=== PATIENT | female | born 1940 | race Caucasian/White ===

== ENCOUNTER 2018-06-28 15:13 | Emergency (ER) | payer MEDICARE ==
--- NOTE | 2018-06-28 15:57 | ERPHSYRPT ---
- History of Present Illness Time Seen by Provider: 06/28/18 15:51 Source: patient Exam Limitations: no limitations Patient Subjective Stated Complaint: SEEN WEDNESDAY FOR COPD AND PUT ON KEFLEX AND IS NOT GETTING ANY BETTER. MORE SOB TODAY Triage Nursing Assessment: AMBULATED TO ROOM PER SELF. SKIN W/D, COLOR NORMAL, RESP LABORED AND SHALLOW. COARSE BREATH SOUNDS THROUGHOUT. Physician History: The patient is a 78-year-old female complaining of worsening cough and shortness of breath since Wednesday (3 days ago). She went to [facility] in [place] on Wednesday and was given Keflex and a steroid shot. She has not gotten any better. She denies fever or chills she denies chest pain. She was worse this morning but since then, has been feeling better. Her past medical history is significant for COPD, HTN, anxiety. Timing/Duration: day(s) (3) Activities at Onset: none Severity of Dyspnea-Max: moderate Severity of Dyspnea-Current: moderate Possible Cause: occasional episodes Modifying Factors: Improves With: activity, albuterol nebulizer, coughing Associated Symptoms: cough, No chills Allergies/Adverse Reactions: Sulfa (Sulfonamide Antibiotics) Allergy (Severe, Verified 06/28/18 15:21) TONGUE ROSARIO azithromycin [From Zithromax Z-Deuce] Allergy (Verified 06/28/18 15:21) phenobarbital Adverse Reaction (Severe, Verified 06/28/18 15:21) Rash Home Medications: Aspirin [Ecotrin] 81 mg PO DAILY 08/21/14 [History] Calcium Carbonate/Vitamin D3 [Calcium 500-Vit D3 400 Tablet] 1 each PO DAILY [History] Multivitamin [Multivitamins] 1 each PO DAILY 08/21/14 [History] Telmisartan [Micardis] 40 mg PO DAILY 08/21/14 [History] Tiotropium [place] [Spiriva] 18 mcg IH DAILY 11/25/14 [History] Budesonide 0.5 mg/2 ml [Pulmicort 0.5 mg/2 ml Respules] 0.5 mg IH BID 01/22 [History] Hx Tetanus, Diphtheria Vaccination/Date Given: No Hx Influenza Vaccination/Date Given: Yes Hx Pneumococcal Vaccination/Date Given: Yes Immunizations Up to Date: No - Review of Systems Constitutional: No Fever, No Chills Eyes: No Symptoms Ears, Nose, & Throat: No Symptoms Respiratory: Cough, Dyspnea Cardiac: No Chest Pain, No Edema, No Syncope Abdominal/Gastrointestinal: No Abdominal Pain, No Nausea, No Vomiting, No Diarrhea Genitourinary Symptoms: No Dysuria Musculoskeletal: No Back Pain, No Neck Pain Skin: No Rash Neurological: No Dizziness, No Focal Weakness, No Sensory Changes Psychological: No Symptoms Endocrine: No Symptoms Hematologic/Lymphatic: No Symptoms Immunological/Allergic: No Symptoms All Other Systems: Reviewed and Negative - Past Medical History Pertinent Past Medical History: Yes Neurological History: No Pertinent History ENT History: No Pertinent History Cardiac History: Hypertension Respiratory History: COPD Endocrine Medical History: No Pertinent History Musculoskeletal History: No Pertinent History GI Medical History: No Pertinent History History: No Pertinent History Psycho-Social History: Anxiety Female Reproductive Disorders: No Pertinent History - Past Surgical History Past Surgical History: Yes (rectal fistula) Neuro Surgical History: No Pertinent History Cardiac: No Pertinent History Respiratory: No Pertinent History Gastrointestinal: No Pertinent History Genitourinary: No Pertinent History Musculoskeletal: No Pertinent History Female Surgical History: No Pertinent History, Tubal Ligation Other Surgical History: RECTAL CYST - Social History Smoking Status: Never smoker How long have you smoked: 30 Exposure to second hand smoke: Yes Drug Use: none Patient Lives Alone: Yes - Female History Hx Now: No - Nursing Vital Signs Nursing Vital Signs: Initial Vital Signs Temperature 98 F 06/28/18 15:18 Pulse Rate 112 H 06/28/18 15:18 Respiratory Rate 26 H 06/28/18 15:18 Blood Pressure 153/94 06/28/18 15:18 O2 Sat by Pulse Oximetry 94 L 06/28/18 15:18 Pain Scale Pain Intensity 0 - Physical Exam General Appearance: no apparent distress, alert Eye Exam: PERRL/EOMI Ears, Nose, Throat Exam: hearing grossly normal Neck Exam: normal inspection, supple Respiratory Exam: diminished breath sounds, rhonchi, wheezing Cardiovascular/Chest Exam: normal heart sounds, regular rate/rhythm Abdominal/Gastrointestinal Exam: soft, No tenderness, No distention, No mass Rectal Exam: not done Extremity Exam: non-tender, normal range of motion, normal inspection, no calf tenderness, no pedal edema Neurologic Exam: alert, oriented x 3, cooperative, nurse liaison II-XII nml as tested, sensation nml, No motor deficits Skin Exam: normal color, warm, No dry SpO2 Interpretation: borderline oxygenation SpO2: 94 O2 Delivery: Nasal Cannula (2L) - Radiology Exams Chest X-ray Interpretation: Reviewed by me, Teleradiologist Report (per Dr Estes), Negative Ordered Tests: Active Orders 24 hr Category Date Time Status Play Therapist STAT Care 06/28/18 16:02 Active IV Insertion STAT Care 06/28/18 15:59 Active Oxygen-ED Only Nasal Cannula 2 lpm Care 06/28/18 15:59 Active CHEST 2 VIEWS (PA AND LAT) Stat Exams 06/28/18 16:01 Completed CBC W DIFF Stat Lab 06/28/18 16:16 Completed CMP Stat Lab 06/28/18 16:16 Completed Lactic Acid Stat Lab 06/28/18 16:10 Completed NT PRO BNP Stat Lab 06/28/18 16:16 Completed TROPONIN Q3H Lab 06/28/18 16:16 Completed TROPONIN Q3H Lab 06/28/18 19:15 Ordered TROPONIN Q3H Lab 06/28/18 22:15 Ordered TROPONIN Q3H Lab 06/29/18 01:15 Ordered TROPONIN Q3H Lab 06/29/18 04:15 Ordered Peak Expiratory Flow Rate ONCE RT 06/28/18 16:27 Active Respiratory Nebulizer STAT RT 06/28/18 16:02 Completed Respiratory Therapy Assessment DAILY RT 06/28/18 16:27 Active Medication Summary Generic Name Dose Route Start Last Admin Trade Name Freq PRN Reason Stop Dose Admin Ceftriaxone Sodium/Dextrose 1 g in 50 mls @ 100 mls/hr 06/28/18 17:07 Rocephin 1 Gm-D5w 50 Ml Bag IV 06/28/18 17:36 STAT STA Discontinued Medications Generic Name Dose Route Start Last Admin Trade Name Freq PRN Reason Stop Dose Admin Albuterol/Ipratropium 3 ml 06/28/18 15:59 06/28/18 16:22 Duoneb 0.5-3 Mg/3 Ml Neb IH 06/28/18 16:00 3 ml STAT ONE Administration Albuterol/Ipratropium Confirm 06/28/18 16:10 Duoneb 0.5-3 Mg/3 Ml Neb Administered 06/28/18 16:11 Dose 3 ml IH .STK-MED ONE Methylprednisolone Sodium Succinate 125 mg 06/28/18 15:59 06/28/18 16:54 Solu-Medrol 125 Mg IV 06/28/18 16:00 125 mg STAT ONE Administration Methylprednisolone Sodium Succinate Confirm 06/28/18 16:48 Solu-Medrol 125 Mg Administered 06/28/18 16:49 Dose 125 mg .ROUTE .STK-MED ONE Lab/Rad Data: Laboratory Result Diagrams 06/28/18 16:16 06/28/18 16:16 Laboratory Results 06/28/18 06/28/18 06/28/18 Range/Units 16:16 16:16 16:16 WBC (4.0-10.5) K/mm3 RBC (4.1-5.4) M/mm3 Hgb (12.0-16.0) gm/dl Hct (35-47) % MCV (78-100) fl MCH (26-32) pg MCHC (32-36) g/dl RDW (11.5-14.0) % Plt Count (150-450) K/mm3 MPV (6-9.5) fl Gran % (36.0-66.0) % Eos # (Auto) (0-0.5) Absolute Lymphs (auto) (1.0-4.6) Absolute Monos (auto) (0.0-1.3) Lymphocytes % (24.0-44.0) % Monocytes % (0.0-12.0) % Eosinophils % (0.00-5.0) % Basophils % (0.0-0.4) % Absolute Granulocytes (1.4-6.9) Basophils # (0-0.4) Sodium 138 (137-145) mmol/L Potassium 4.1 (3.5-5.1) mmol/L Chloride 104 (98-107) mmol/L Carbon Dioxide 27 (22-30) mmol/L Anion Gap 11.1 (5-15) MEQ/L BUN 23 H (7-17) mg/dL Creatinine 0.94 (0.52-1.04) mg/dL Estimated GFR > 60.0 ML/MIN Glucose 85 (74-106) mg/dL Lactic Acid (0.4-2.0) Calcium 9.8 (8.4-10.2) mg/dL Total Bilirubin 0.50 (0.2-1.3) mg/dL AST 22 (14-36) U/L ALT 20 (0-35) U/L Alkaline Phosphatase 64 (38-126) U/L Troponin I < 0.012 (0.000-0.034) ng/mL NT-Pro-B Natriuret Pep 353 (0-1800) pg/mL Serum Total Protein 7.7 (6.3-8.2) g/dL Albumin 4.3 (3.5-5.0) g/dL Influenza Type A Ag NEGATIVE (NEGATIVE) Influenza Type B Ag NEGATIVE (NEGATIVE) 06/28/18 06/28/18 Range/Units 16:16 16:10 WBC 9.8 (4.0-10.5) K/mm3 RBC 4.36 (4.1-5.4) M/mm3 Hgb 13.9 (12.0-16.0) gm/dl Hct 42.3 (35-47) % MCV 97.0 (78-100) fl MCH 31.9 (26-32) pg MCHC 32.9 (32-36) g/dl RDW 13.3 (11.5-14.0) % Plt Count 320 (150-450) K/mm3 MPV 10.0 H (6-9.5) fl Gran % 63.4 (36.0-66.0) % Eos # (Auto) 0.23 (0-0.5) Absolute Lymphs (auto) 2.76 (1.0-4.6) Absolute Monos (auto) 0.59 (0.0-1.3) Lymphocytes % 28.1 (24.0-44.0) % Monocytes % 6.0 (0.0-12.0) % Eosinophils % 2.3 (0.00-5.0) % Basophils % 0.2 (0.0-0.4) % Absolute Granulocytes 6.22 (1.4-6.9) Basophils # 0.02 (0-0.4) Sodium (137-145) mmol/L Potassium (3.5-5.1) mmol/L Chloride (98-107) mmol/L Carbon Dioxide (22-30) mmol/L Anion Gap (5-15) MEQ/L BUN (7-17) mg/dL Creatinine (0.52-1.04) mg/dL Estimated GFR ML/MIN Glucose (74-106) mg/dL Lactic Acid 1.2 (0.4-2.0) Calcium (8.4-10.2) mg/dL Total Bilirubin (0.2-1.3) mg/dL AST (14-36) U/L ALT (0-35) U/L Alkaline Phosphatase (38-126) U/L Troponin I (0.000-0.034) ng/mL NT-Pro-B Natriuret Pep (0-1800) pg/mL Serum Total Protein (6.3-8.2) g/dL Albumin (3.5-5.0) g/dL Influenza Type A Ag (NEGATIVE) Influenza Type B Ag (NEGATIVE) - Progress Progress: improved Blood Culture(s) Obtained: No Antibiotics given: Yes Counseled pt/family regarding: rad results - Departure Time of Disposition: 17:13 Departure Disposition: Home Clinical Impression: Bronchitis Condition: Stable Critical Care Time: No Referrals: CELIA SHARP MD [Primary Care Provider] - Additional Instructions: You have bronchitis. The chest x-ray did not show any pneumonia. Your laboratory test shows you do not have influenza. You were given a DuoNeb breathing treatment, Solu-Medrol 125 mg by IV, and Rocephin 1 g by IV in the ER. Take doxycycline 100 mg 2 times a day for 7 days. Take prednisone 60 mg daily for 5 days. Finally stopped taking the Keflex. Follow-up with your primary medical doctor in 2-3 days. Prescriptions: Doxycycline Hyclate 100 mg [Vibramycin 100 MG] 100 mg PO BID #14 tab Prednisone 60 mg PO DAILY #15 tablet
[2018-06-28] MEDS ORDERED: DUONEB 0.5-3 MG/3 ml Neb IH ONE ×2 (15:59→16:10)
[2018-06-28] MEDS ORDERED: solu-MEDROL 125 MG IV ONE (15:59)
[2018-06-28 16:22] LABS: BASOPHIL % 0.2 % (0.0-0.4); Basophil (Absolute #) 0.02 (0-0.4); Eosinophil % 2.3 % (0.00-5.0); Eosinophil (Absolute #) 0.23 (0-0.5); Granulocyte Absolute (ANC) 6.22 (1.4-6.9); Granulocytes % 63.4 % (36.0-66.0); Hematocrit 42.3 % (35-47); Hemoglobin 13.9 gm/dl (12.0-16.0); Lymphocyte (Absolute #) 2.76 (1.0-4.6); Lymphocytes % 28.1 % (24.0-44.0); Mean Corpuscular Hemoglobin 31.9 pg (26-32); Mean Corpuscular Hgb Concent. 32.9 g/dl (32-36); Monocyte (Absolute #) 0.59 (0.0-1.3); Platelet Count 320 K/mm3 (150-450); Red Blood Count 4.36 M/mm3 (4.1-5.4); Red Cell Distribution Width 13.3 % (11.5-14.0); White Blood Count 9.8 K/mm3 (4.0-10.5)
--- NOTE | 2018-06-28 16:22 | XRAY ---
Indication: Cough and short of breath 4 days. History COPD. Comparison: March 25, 2016. PA/lateral chest remains hyperinflated and clear. Heart and mediastinal structures within normal limits. Bony thorax intact again with mild osteopenia, degenerative changes, and scoliosis. Impression: Stable nonacute hyperinflated chest with chronic features.
[2018-06-28 16:40] LABS: ALBUMIN 4.3 g/dL (3.5-5.0); ALKALINE PHOSPHATASE 64 U/L (38-126); ANION GAP 11.1 MEQ/L (5-15); BLOOD UREA NITROGEN 23 mg/dL (7-17); CHLORIDE 104 mmol/L (98-107); Calcium 9.8 mg/dL (8.4-10.2); Carbon Dioxide 27 mmol/L (22-30); Creatinine 1 0.94 mg/dL (0.52-1.04); Glucose 85 mg/dL (74-106); NT PRO BNP 353 pg/mL (0-1800); Potassium 4.1 mmol/L (3.5-5.1); SGOT/AST 22 U/L (14-36); SGPT/ALT 20 U/L (0-35); SODIUM 138 mmol/L (137-145); Total Protein 7.7 g/dL (6.3-8.2)
[2018-06-28] MEDS ORDERED: solu-MEDROL 125 MG ONE (16:48)
[2018-06-28 16:58] LABS: INFLUENZA A NEGATIVE (NEGATIVE); INFLUENZA B NEGATIVE (NEGATIVE)
[2018-06-28] MEDS ORDERED: ROCEPHIN 1 Gm-D5w 50 ml Bag** 1 G/50 ML IVPB IV STA (17:07)
[2018-06-28] MEDS ORDERED: ROCEPHIN 1 Gm-D5w 50 ml Bag** 1 G/50 ML IVPB IV ONE (17:16)
[2018-06-28 17:43] LABS: RESPIRATORY SYNCTIAL VIRUS NEGATIVE (Negative)
[2018-06-28 18:19] VITALS: BP 124/62; PULSE 103; O2SAT 94
== END 2018-06-28 18:05 | disposition home or self-care (01) ==
LOC: ED 15:13
DX: J40 Bronchitis, not specified as acute or chronic (principal); I10 Essential (primary) hypertension; J44.9 Chronic obstructive pulmonary disease, unspecified; Z79.899 Other long term (current) drug therapy; F41.9 Anxiety disorder, unspecified
CPT/HCPCS: 36000; 36415; 71046; 80053; 83605; 83880; 84484; 85025; 87631; 93041; 94150; 94640; 96365; 96374; 96375; 99284; J0696; J2930; A9270-GY

== ENCOUNTER 2019-05-09 11:06 | Emergency (ER) | payer MEDICARE ==
--- NOTE | 2019-05-09 11:22 | ERPHSYRPT ---
- History of Present Illness Time Seen by Provider: 05/09/19 11:11 Source: patient, family Exam Limitations: no limitations Physician History: cough and shortness of breath or last or 4 days. patient was seen at urgent care. Was prescribed Keflex and the steroid. The patient says she lives by herself and probably got anxious because she was unable to breathe. She actually feels better now. No shortness of breath or respiratory distress. No history of heart problem. Timing/Duration: day(s) (4) Activities at Onset: emotional stress Severity of Dyspnea-Max: moderate Severity of Dyspnea-Current: mild Possible Cause: occasional episodes Modifying Factors: Improves With: albuterol inhaler, rest Associated Symptoms: intermittent, anxiety, cough, No chest pain/discomfort, No edema, No fever, No insomnia, No loss of appetite, No lightheadedness, No wheezing, No weakness, No ankle swelling, No chills, No hemoptysis, No calf pain , No dizziness, No heaviness, No heart racing, No lightheadedness, No leg swelling, No muscle spasms feet, No muscle spasms hands Allergies/Adverse Reactions: Sulfa (Sulfonamide Antibiotics) Allergy (Severe, Verified 05/09/19 11:52) TONGUE ROSARIO azithromycin [From Zithromax Z-Deuce] Allergy (Verified 05/09/19 11:52) phenobarbital Adverse Reaction (Severe, Verified 05/09/19 11:52) Rash Home Medications: Aspirin [Ecotrin] 81 mg PO DAILY 08/21/14 [History] Calcium Carbonate/Vitamin D3 [Calcium 500-Vit D3 400 Tablet] 1 each PO DAILY [History] Multivitamin [Multivitamins] 1 each PO DAILY 08/21/14 [History] Telmisartan [Micardis] 40 mg PO DAILY 08/21/14 [History] Tiotropium [place] [Spiriva] 18 mcg IH DAILY 11/25/14 [History] Budesonide 0.5 mg/2 ml [Pulmicort 0.5 mg/2 ml Respules] 0.5 mg IH BID 01/22 [History] Hx Tetanus, Diphtheria Vaccination/Date Given: No Hx Influenza Vaccination/Date Given: Yes Hx Pneumococcal Vaccination/Date Given: Yes - Review of Systems Constitutional: Chills Eyes: No Symptoms Ears, Nose, & Throat: No Symptoms Respiratory: Cough, Dyspnea, Wheezing, No Dyspnea on Exertion ([place]) Cardiac: No Chest Pain, No Edema, No Syncope Abdominal/Gastrointestinal: No Abdominal Pain, No Nausea, No Vomiting, No Diarrhea Genitourinary Symptoms: No Dysuria Musculoskeletal: No Back Pain, No Neck Pain Skin: No Rash Neurological: No Dizziness, No Focal Weakness, No Sensory Changes Psychological: No Symptoms, Anxiety Endocrine: No Symptoms All Other Systems: Reviewed and Negative - Past Medical History Pertinent Past Medical History: Yes Neurological History: No Pertinent History ENT History: No Pertinent History Cardiac History: Hypertension Respiratory History: COPD Endocrine Medical History: No Pertinent History Musculoskeletal History: No Pertinent History GI Medical History: No Pertinent History History: No Pertinent History Psycho-Social History: Anxiety Female Reproductive Disorders: No Pertinent History - Past Surgical History Past Surgical History: Yes (rectal fistula) Neuro Surgical History: No Pertinent History Cardiac: No Pertinent History Respiratory: No Pertinent History Gastrointestinal: No Pertinent History Genitourinary: No Pertinent History Musculoskeletal: No Pertinent History Female Surgical History: No Pertinent History, Tubal Ligation Other Surgical History: RECTAL CYST - Social History Smoking Status: Never smoker How long have you smoked: 30 Exposure to second hand smoke: Yes Drug Use: none Patient Lives Alone: Yes - Nursing Vital Signs Nursing Vital Signs: Initial Vital Signs Temperature 98.2 F 05/09/19 11:15 Pulse Rate 116 H 05/09/19 11:15 Respiratory Rate 18 05/09/19 11:15 Blood Pressure 176/101 05/09/19 11:15 O2 Sat by Pulse Oximetry 93 L 05/09/19 11:15 Pain Scale Pain Intensity 0 - Physical Exam General Appearance: no apparent distress, alert Eye Exam: PERRL/EOMI Neck Exam: normal inspection, supple Respiratory Exam: normal breath sounds, lungs clear, airway intact, No chest tenderness, No respiratory distress, No diminished breath sounds, No accessory muscle use, No prolonged expirations, No crackles/rales, No rhonchi, No wheezing , No stridor Cardiovascular/Chest Exam: normal heart sounds, regular rate/rhythm Abdominal/Gastrointestinal Exam: soft, No tenderness, No distention, No mass Extremity Exam: non-tender, normal range of motion, normal inspection, no calf tenderness, no pedal edema Neurologic Exam: alert, oriented x 3, cooperative, learning and development associate II-XII nml as tested, sensation nml, other (Anxious), No motor deficits Skin Exam: normal color, warm, No dry SpO2 Interpretation: normal - Course Nursing assessment & vital signs reviewed: Yes EKG Interpreted by Me: RATE ([id number]), Sinus Tach - Radiology Exams Chest X-ray Interpretation: Discussed w/ radiologist, Negative Ordered Tests: Active Orders 24 hr Category Date Time Status Programming Equipment Operator STAT Care 05/09/19 11:12 Active EKG-ER Only STAT Care 05/09/19 11:12 Active IV Insertion STAT Care 05/09/19 11:12 Active Pulse Oximetry (ED) STAT Care 05/09/19 11:12 Active CHEST 1 VIEW (PORTABLE) Stat Exams 05/09/19 11:12 Completed BLOOD CULTURE Stat Lab 05/09/19 12:20 Received CBC W DIFF Stat Lab 05/09/19 12:20 Completed CK-Creatinine Phosphokinase Stat Lab 05/09/19 12:20 Completed CMP Stat Lab 05/09/19 12:20 Completed Lactic Acid Stat Lab 05/09/19 11:44 Completed NT PRO BNP Stat Lab 05/09/19 12:20 Completed TROPONIN Q3H Lab 05/09/19 12:00 Completed TROPONIN Q3H Lab 05/09/19 14:15 Ordered TROPONIN Q3H Lab 05/09/19 17:15 Ordered Respiratory Therapy Assessment ONCE RT 05/09/19 12:07 Active Medication Summary Generic Name Dose Route Start Last Admin Trade Name Freq PRN Reason Stop Dose Admin Furosemide 20 mg 05/10/19 11:30 05/09/19 12:32 Lasix 20 Mg/2 Ml IV 05/10/19 11:31 20 mg STAT ONE Administration Discontinued Medications Generic Name Dose Route Start Last Admin Trade Name Freq PRN Reason Stop Dose Admin Albuterol/Ipratropium 3 ml 05/09/19 11:28 05/09/19 12:03 Duoneb 0.5-3 Mg/3 Ml Neb IH 05/09/19 11:29 3 ml STAT ONE Administration Albuterol/Ipratropium Confirm 05/09/19 12:01 Duoneb 0.5-3 Mg/3 Ml Neb Administered 05/09/19 12:02 Dose 3 ml IH .STK-MED ONE Furosemide Confirm 05/09/19 12:17 Lasix 40 Mg/4 Ml Administered 05/09/19 12:18 Dose 40 mg .ROUTE .STK-MED ONE Ceftriaxone Sodium/Dextrose 1 g in 50 mls @ 100 mls/hr 05/09/19 11:28 13:08 Rocephin 1 Gm-D5w 50 Ml Bag IV 05/09/19 11:57 Infused STAT STA Infusion Ceftriaxone Sodium/Dextrose Confirm 05/09/19 12:17 Rocephin 1 Gm-D5w 50 Ml Bag Administered 05/09/19 12:18 Dose 1 g in 50 mls @ ud IV .STK-MED ONE Methylprednisolone Sodium Succinate 125 mg 05/09/19 11:28 05/09/19 12:31 Solu-Medrol 125 Mg IV 05/09/19 11:29 125 mg STAT ONE Administration Methylprednisolone Sodium Succinate Confirm 05/09/19 12:17 Solu-Medrol 125 Mg Administered 05/09/19 12:18 Dose 125 mg .ROUTE .STK-MED ONE Lab/Rad Data: Laboratory Result Diagrams 05/09/19 12:20 05/09/19 12:20 Laboratory Results 05/09/19 05/09/19 05/09/19 Range/Units 12:20 12:20 12:20 WBC 13.5 H (4.0-10.5) K/mm3 RBC 4.62 (4.1-5.4) M/mm3 Hgb 14.7 (12.0-16.0) gm/dl Hct 45.1 (35-47) % MCV 97.6 (78-100) fl MCH 31.8 (26-32) pg MCHC 32.6 (32-36) g/dl RDW 13.4 (11.5-14.0) % Plt Count 426 (150-450) K/mm3 MPV 10.0 H (6-9.5) fl Gran % 93.7 H (36.0-66.0) % Eos # (Auto) 0.01 (0-0.5) Absolute Lymphs (auto) 0.65 L (1.0-4.6) Absolute Monos (auto) 0.17 (0.0-1.3) Lymphocytes % 4.8 L (24.0-44.0) % Monocytes % 1.3 (0.0-12.0) % Eosinophils % 0.1 (0.00-5.0) % Basophils % 0.1 (0.0-0.4) % Absolute Granulocytes 12.62 H (1.4-6.9) Basophils # 0.01 (0-0.4) Sodium 137 (137-145) mmol/L Potassium 4.3 (3.5-5.1) mmol/L Chloride 103 (98-107) mmol/L Carbon Dioxide 25 (22-30) mmol/L Anion Gap 13.3 (5-15) MEQ/L BUN 24 H (7-17) mg/dL Creatinine 0.86 (0.52-1.04) mg/dL Estimated GFR > 60.0 ML/MIN Glucose 114 H (74-106) mg/dL Lactic Acid (0.4-2.0) Calcium 10.4 H (8.4-10.2) mg/dL Total Bilirubin 0.60 (0.2-1.3) mg/dL AST 34 (14-36) U/L ALT 21 (0-35) U/L Alkaline Phosphatase 59 (38-126) U/L Creatine Kinase 34 (30-135) U/L Troponin I (0.000-0.034) ng/mL NT-Pro-B Natriuret Pep 520 (0-1800) pg/mL Serum Total Protein 8.0 (6.3-8.2) g/dL Albumin 4.4 (3.5-5.0) g/dL Influenza Type A Ag NEGATIVE (NEGATIVE) Influenza Type B Ag NEGATIVE (NEGATIVE) RSV (PCR) NEGATIVE (Negative) 05/09/19 05/09/19 Range/Units 12:00 11:44 WBC (4.0-10.5) K/mm3 RBC (4.1-5.4) M/mm3 Hgb (12.0-16.0) gm/dl Hct (35-47) % MCV (78-100) fl MCH (26-32) pg MCHC (32-36) g/dl RDW (11.5-14.0) % Plt Count (150-450) K/mm3 MPV (6-9.5) fl Gran % (36.0-66.0) % Eos # (Auto) (0-0.5) Absolute Lymphs (auto) (1.0-4.6) Absolute Monos (auto) (0.0-1.3) Lymphocytes % (24.0-44.0) % Monocytes % (0.0-12.0) % Eosinophils % (0.00-5.0) % Basophils % (0.0-0.4) % Absolute Granulocytes (1.4-6.9) Basophils # (0-0.4) Sodium (137-145) mmol/L Potassium (3.5-5.1) mmol/L Chloride (98-107) mmol/L Carbon Dioxide (22-30) mmol/L Anion Gap (5-15) MEQ/L BUN (7-17) mg/dL Creatinine (0.52-1.04) mg/dL Estimated GFR ML/MIN Glucose (74-106) mg/dL Lactic Acid 1.7 (0.4-2.0) Calcium (8.4-10.2) mg/dL Total Bilirubin (0.2-1.3) mg/dL AST (14-36) U/L ALT (0-35) U/L Alkaline Phosphatase (38-126) U/L Creatine Kinase (30-135) U/L Troponin I < 0.012 (0.000-0.034) ng/mL NT-Pro-B Natriuret Pep (0-1800) pg/mL Serum Total Protein (6.3-8.2) g/dL Albumin (3.5-5.0) g/dL Influenza Type A Ag (NEGATIVE) Influenza Type B Ag (NEGATIVE) RSV (PCR) (Negative) - Progress Air Movement: good Progress Note: 05/09/19 13:13 patient asymptomatic respiratory exam normal. Blood Culture(s) Obtained: Yes Antibiotics given: Yes Counseled pt/family regarding: lab results, diagnosis, need for follow-up, rad results - Departure Departure Disposition: Home Clinical Impression: COPD exacerbation, Anxiety Condition: Good Critical Care Time: No Referrals: CELIA SHARP MD [Primary Care Provider] - Follow Up with PCP/3 days Instructions: Exacerbation of COPD (DC), Panic Disorder Prescriptions: Doxycycline Hyclate 100 mg [Vibramycin 100 MG] 100 mg PO BID #14 tab
--- NOTE | 2019-05-09 11:38 | XRAY ---
Indication: Short of breath. Comparison: June 28, 2018. Pourable chest remains hyperinflated and clear. Heart is not enlarged. Bony thorax intact again with mild osteopenia, degenerative changes, and scoliosis. Impression: Stable nonacute hyperinflated chest with chronic features.
[2019-05-09] MEDS ORDERED: DUONEB 0.5-3 MG/3 ml Neb IH ONE (12:01)
[2019-05-09] MEDS: DUONEB 0.5-3 MG/3 ml Neb IH ONE (12:03)
[2019-05-09] MEDS ORDERED: solu-MEDROL 125 MG ONE (12:17)
[2019-05-09] MEDS ORDERED: Lasix 40 MG/4 ML ONE (12:17)
[2019-05-09] MEDS ORDERED: ROCEPHIN 1 Gm-D5w 50 ml Bag** 1 G/50 ML IVPB IV ONE (12:17)
[2019-05-09] MEDS: solu-MEDROL 125 MG IV ONE (12:31)
[2019-05-09] MEDS: Lasix 20 MG/2 ML IV ONE (12:32)
[2019-05-09] MEDS: ROCEPHIN 1 Gm-D5w 50 ml Bag** 1 G/50 ML IVPB IV STA (12:33)
[2019-05-09 12:34] VITALS: BP 142/83; PULSE 111; O2SAT 93
[2019-05-09 12:43] LABS: Absolute Neutrophil Ct (ANC) 12.62 (1.4-6.9); BASOPHIL % 0.1 % (0.0-0.4); Basophil (Absolute #) 0.01 (0-0.4); Eosinophil % 0.1 % (0.00-5.0); Eosinophil (Absolute #) 0.01 (0-0.5); Hematocrit 45.1 % (35-47); Hemoglobin 14.7 gm/dl (12.0-16.0); Lymphocyte (Absolute #) 0.65 (1.0-4.6); Lymphocytes % 4.8 % (24.0-44.0); Mean Cell Volume 97.6 fl (78-100); Mean Corpuscular Hemoglobin 31.8 pg (26-32); Mean Corpuscular Hgb Concent. 32.6 g/dl (32-36); Monocyte (Absolute #) 0.17 (0.0-1.3); Monocytes % 1.3 % (0.0-12.0); Neutrophil % 93.7 % (36.0-66.0); Platelet Count 426 K/mm3 (150-450); Red Blood Count 4.62 M/mm3 (4.1-5.4); Red Cell Distribution Width 13.4 % (11.5-14.0); White Blood Count 13.5 K/mm3 (4.0-10.5)
[2019-05-09 12:54] LABS: ALBUMIN 4.4 g/dL (3.5-5.0); ALKALINE PHOSPHATASE 59 U/L (38-126); ANION GAP 13.3 MEQ/L (5-15); BLOOD UREA NITROGEN 24 mg/dL (7-17); CHLORIDE 103 mmol/L (98-107); CK-Creatinine Phosphokinase 34 U/L (30-135); Calcium 10.4 mg/dL (8.4-10.2); Carbon Dioxide 25 mmol/L (22-30); Creatinine 1 0.86 mg/dL (0.52-1.04); Glucose 114 mg/dL (74-106); NT PRO BNP 520 pg/mL (0-1800); Potassium 4.3 mmol/L (3.5-5.1); SGOT/AST 34 U/L (14-36); SGPT/ALT 21 U/L (0-35); SODIUM 137 mmol/L (137-145)
[2019-05-09 13:08] LABS: INFLUENZA A NEGATIVE (NEGATIVE); INFLUENZA B NEGATIVE (NEGATIVE); RESPIRATORY SYNCTIAL VIRUS NEGATIVE (Negative)
== END 2019-05-09 13:39 | disposition home or self-care (01) ==
LOC: ED 11:06
DX: J44.1 Chronic obstructive pulmonary disease with (acute) exacerbation (principal); F41.1 Generalized anxiety disorder
CPT/HCPCS: 36000; 36415; 71045; 80053; 82550; 83605; 83880; 84484; 85025; 87040; 87631; 93005; 93041; 94640; 94760; 96365; 96374; 96375; 99284; J0696; J1940; J2930; A9270-GY

== ENCOUNTER 2020-11-17 10:26 | Emergency (ER) | payer MEDICARE ==
[2020-11-17] MEDS ORDERED: DUONEB 0.5-3 MG/3 ml Neb IH ONE ×2 (10:37→10:43)
[2020-11-17] MEDS ORDERED: solu-MEDROL 125 MG, Sterile H2O 10 ml 2 ML IV ONE ×2 (10:37)
--- NOTE | 2020-11-17 10:42 | ERPHSYRPT ---
- History of Present Illness Time Seen by Provider: 11/17/20 10:29 Source: patient Exam Limitations: no limitations Patient Subjective Stated Complaint: PT states "I went to Dr. Sharp office on wed and they put me on prednisone and an antibiotic." Triage Nursing Assessment: Pt presented alert and oriented X 3, skin pwd Pt ambulates with a slow gait, able to speak in clear full sentences pt slightly tachypneic. Pt able to speak in clear full sentences. Pt resting comfortably on the bed. Physician History: 80 years old female with history of hypertension, COPD presented in the ER with 1 week history of progressively worsening shortness of breath and cough productive of yellow sputum moderate in amount. Patient was seen outpatient at primary care, currently on prednisone and doxycycline for the last 3 days with no significant relief and is actually getting worse. Patient reports initially she was getting short of breath but activity and now she is having bouts of coughing with more sputum production and also generalized weakness fatigue and tiredness. Denies fever or chills. Denies any chest pain but because of coughing feeling generalized soreness in the chest. Timing/Duration: week(s) (1), constant, gradual onset, worse Activities at Onset: activity Severity of Dyspnea-Max: moderate Severity of Dyspnea-Current: moderate Modifying Factors: Worsens With: coughing, exertion Associated Symptoms: cough, chest pain/discomfort, wheezing, weakness, pro ductive cough Allergies/Adverse Reactions: Sulfa (Sulfonamide Antibiotics) Allergy (Severe, Verified 05/09/19 11:52) TONGUE ROSARIO azithromycin [From Zithromax Z-Deuce] Allergy (Verified 05/09/19 11:52) phenobarbital Adverse Reaction (Severe, Verified 05/09/19 11:52) Rash Home Medications: Aspirin [Ecotrin] 81 mg PO DAILY 08/21/14 [History] Calcium Carbonate/Vitamin D3 [Calcium 500-Vit D3 400 Tablet] 1 each PO DAILY 08/21/14 [History] Multivitamin [Multivitamins] 1 each PO DAILY 08/21/14 [History] Telmisartan [Micardis] 40 mg PO DAILY 08/21/14 [History] Tiotropium Chicken [Spiriva] 18 mcg IH DAILY 11/25/14 [History] Budesonide 0.5 mg/2 ml [Pulmicort 0.5 mg/2 ml Respules] 0.5 mg IH BID 04/17/15 [History] Hx Tetanus, Diphtheria Vaccination/Date Given: No Hx Influenza Vaccination/Date Given: Yes Hx Pneumococcal Vaccination/Date Given: Yes Immunizations Up to Date: Yes Travel Risk - International Travel Have you traveled outside of the country in past 3 weeks: No - Coronavirus Screening Are you exhibiting any of the following symptoms?: No Close contact with a COVID-19 positive Pt in past 14-21 Days: No - Vaccine Status Have you recieved a Covid-19 vaccination: Yes Survey Coordinator: Moderna - Vaccination Dates Date of 2cond Vaccination (if applicable): 08/2020 - Review of Systems Constitutional: Fatigue, Weakness Eyes: No Symptoms Ears, Nose, & Throat: No Symptoms Respiratory: Cough, Dyspnea, Dyspnea on Exertion (MANCUSO), Wheezing Cardiac: No Symptoms Abdominal/Gastrointestinal: No Symptoms Genitourinary Symptoms: No Symptoms Musculoskeletal: Myalgias Skin: No Symptoms Neurological: No Symptoms Psychological: No Symptoms Endocrine: No Symptoms Hematologic/Lymphatic: No Symptoms - Past Medical History Pertinent Past Medical History: Yes Neurological History: No Pertinent History ENT History: No Pertinent History Cardiac History: Hypertension Respiratory History: COPD Endocrine Medical History: No Pertinent History Musculoskeletal History: No Pertinent History GI Medical History: No Pertinent History History: No Pertinent History Psycho-Social History: Anxiety Female Reproductive Disorders: No Pertinent History - Past Surgical History Past Surgical History: Yes (rectal fistula) Neuro Surgical History: No Pertinent History Cardiac: No Pertinent History Respiratory: No Pertinent History Gastrointestinal: No Pertinent History Genitourinary: No Pertinent History Musculoskeletal: No Pertinent History Female Surgical History: No Pertinent History, Tubal Ligation Other Surgical History: RECTAL CYST - Social History Smoking Status: Former smoker How long have you smoked: 30 Exposure to second hand smoke: Yes Drug Use: none Patient Lives Alone: Yes - Female History Hx Now: No - Nursing Vital Signs Nursing Vital Signs: Initial Vital Signs Temperature 98.4 F 11/17/20 10:26 Pulse Rate 119 H 11/17/20 10:26 Respiratory Rate 28 H 11/17/20 10:26 Blood Pressure 177/97 11/17/20 10:26 O2 Sat by Pulse Oximetry 95 11/17/20 10:26 Pain Scale Pain Intensity 0 - Physical Exam General Appearance: no apparent distress, alert Eye Exam: PERRL/EOMI, eyes nml inspection Ears, Nose, Throat Exam: hearing grossly normal, pharyngeal erythema Neck Exam: normal inspection, supple, full range of motion Respiratory Exam: rhonchi, wheezing Cardiovascular/Chest Exam: normal heart sounds, tachycardia Abdominal/Gastrointestinal Exam: soft, normal bowel sounds, No tenderness Extremity Exam: non-tender, normal range of motion, normal inspection, normal capillary refill Neurologic Exam: alert, oriented x 3, cooperative Skin Exam: normal color SpO2 Interpretation: normal SpO2: 95 O2 Delivery: Room Air Ordered Tests: Active Orders 24 hr Category Date Time Status Polish Compounder STAT Care 11/17/20 10:38 Active EKG-ER Only STAT Care 11/17/20 10:37 Active IV Insertion STAT Care 11/17/20 10:37 Active Oxygen-ED Only Nasal Cannula 2 lpm Care 11/17/20 10:37 Active CHEST 1 VIEW (PORTABLE) Stat Exams 11/17/20 10:52 Taken BLOOD CULTURE Stat Lab 11/17/20 11:10 Received CBC W DIFF Stat Lab 11/17/20 11:01 Completed CMP Stat Lab 11/17/20 11:01 Completed Lactic Acid Stat Lab 11/17/20 10:37 Completed MAGNESIUM Stat Lab 11/17/20 11:01 Completed NT PRO BNP Stat Lab 11/17/20 11:01 Completed TROPONIN Q3H Lab 11/17/20 11:01 Completed TROPONIN Q3H Lab 11/17/20 13:45 Ordered TROPONIN Q3H Lab 11/17/20 16:45 Ordered TROPONIN Q3H Lab 11/17/20 19:45 Ordered TROPONIN Q3H Lab 11/17/20 22:45 Ordered Respiratory Therapy Assessment DAILY RT 11/17/20 11:33 Active Medication Summary Discontinued Medications Generic Name Dose Route Start Last Admin Trade Name Freq PRN Reason Stop Dose Admin Albuterol/Ipratropium 3 ml 11/17/20 10:37 11/17/20 10:45 Duoneb 0.5-3 Mg/3 Ml Neb IH 11/17/20 10:38 3 ml STAT ONE Administration Albuterol/Ipratropium Confirm 11/17/20 10:43 Duoneb 0.5-3 Mg/3 Ml Neb Administered 11/17/20 10:44 Dose 3 ml IH .STK-MED ONE Methylprednisolone Sodium 0 mg 11/17/20 10:37 11/17/20 11:02 Succinate 125 mg/ Sterile IV 11/17/20 10:38 125 mg Water 2 ml STAT ONE Administration Methylprednisolone Sodium Succinate Confirm 11/17/20 11:02 Solu-Medrol Administered 11/17/20 11:03 Dose 125 mg .ROUTE .STK-MED ONE Sterile Water Confirm 11/17/20 11:02 Sterile H2o 10 Ml Administered 11/17/20 11:03 Dose 10 ml IJ .STK-MED ONE Lab/Rad Data: Laboratory Result Diagrams 11/17/20 11:01 11/17/20 11:01 Laboratory Results 11/17/20 11/17/20 11/17/20 Range/Units 11:01 11:01 11:01 WBC 12.5 H (4.0-10.5) K/mm3 RBC 4.64 (4.1-5.4) M/mm3 Hgb 14.5 (12.0-16.0) gm/dl Hct 44.3 (35-47) % MCV 95.5 (78-100) fl MCH 31.3 (26-32) pg MCHC 32.7 (32-36) g/dl RDW 13.2 (11.5-14.0) % Plt Count 341 (150-450) K/mm3 MPV 9.0 (7.5-11.0) fl Gran % 92.9 H (36.0-66.0) % Eos # (Auto) 0 (0-0.5) Absolute Lymphs (auto) 0.46 L (1.0-4.6) Absolute Monos (auto) 0.41 (0.0-1.3) Lymphocytes % 3.7 L (24.0-44.0) % Monocytes % 3.3 (0.0-12.0) % Eosinophils % 0.0 (0.00-5.0) % Basophils % 0.1 (0.0-0.4) % Absolute Granulocytes 11.59 H (1.4-6.9) Basophils # 0.01 (0-0.4) Sodium 130 L (137-145) mmol/L Potassium 4.6 (3.5-5.1) mmol/L Chloride 94 L (98-107) mmol/L Carbon Dioxide 29 (22-30) mmol/L Anion Gap 11.3 (5-15) MEQ/L BUN 23 H (7-17) mg/dL Creatinine 0.93 (0.52-1.04) mg/dL Estimated GFR > 60.0 ML/MIN Glucose 106 (74-106) mg/dL Lactic Acid (0.4-2.0) Calcium 10.0 (8.4-10.2) mg/dL Magnesium 1.8 (1.6-2.3) mg/dL Total Bilirubin 0.30 (0.2-1.3) mg/dL AST 29 (14-36) U/L ALT 26 (0-35) U/L Alkaline Phosphatase 66 (38-126) U/L Troponin I < 0.012 (0.000-0.034) ng/mL NT-Pro-B Natriuret Pep 410 (0-1800) pg/mL Serum Total Protein 7.3 (6.3-8.2) g/dL Albumin 4.2 (3.5-5.0) g/dL Slides for Path Review YES 11/17/20 Range/Units 10:37 WBC (4.0-10.5) K/mm3 RBC (4.1-5.4) M/mm3 Hgb (12.0-16.0) gm/dl Hct (35-47) % MCV (78-100) fl MCH (26-32) pg MCHC (32-36) g/dl RDW (11.5-14.0) % Plt Count (150-450) K/mm3 MPV (7.5-11.0) fl Gran % (36.0-66.0) % Eos # (Auto) (0-0.5) Absolute Lymphs (auto) (1.0-4.6) Absolute Monos (auto) (0.0-1.3) Lymphocytes % (24.0-44.0) % Monocytes % (0.0-12.0) % Eosinophils % (0.00-5.0) % Basophils % (0.0-0.4) % Absolute Granulocytes (1.4-6.9) Basophils # (0-0.4) Sodium (137-145) mmol/L Potassium (3.5-5.1) mmol/L Chloride (98-107) mmol/L Carbon Dioxide (22-30) mmol/L Anion Gap (5-15) MEQ/L BUN (7-17) mg/dL Creatinine (0.52-1.04) mg/dL Estimated GFR ML/MIN Glucose (74-106) mg/dL Lactic Acid 1.1 (0.4-2.0) Calcium (8.4-10.2) mg/dL Magnesium (1.6-2.3) mg/dL Total Bilirubin (0.2-1.3) mg/dL AST (14-36) U/L ALT (0-35) U/L Alkaline Phosphatase (38-126) U/L Troponin I (0.000-0.034) ng/mL NT-Pro-B Natriuret Pep (0-1800) pg/mL Serum Total Protein (6.3-8.2) g/dL Albumin (3.5-5.0) g/dL Slides for Path Review - Progress Progress: improved, re-examined Air Movement: good Progress Note: 11/17/20 12:08 She is given DuoNeb and Solu-Medrol. EKG did not show any acute ST elevation. Negative troponins. Patient oxygen saturation is around 94% on room air. Chest x-ray showed chronic findings with no acute. Patient wheezing is improved af ter breathing treatment and she is feeling much better on reevaluation. She has a white count of 12. I have made her walk in the ER and her ambulatory sats did not drop below 92%. I believe patient has COPD exacerbation and she is taking neb treatments twice a day, recommended taking every 6 hourly and continue with current antibiotics and steroid and outpatient follow-up. Discussed signs symptoms of worsening needing return to ER which he seems understanding. Stable for discharge. Blood Culture(s) Obtained: No Antibiotics given: No Counseled pt/family regarding: lab results, diagnosis, need for follow-up, rad results - Departure Departure Disposition: Home Clinical Impression: COPD exacerbation Condition: Stable Critical Care Time: No Referrals: CELIA SHARP MD [Primary Care Provider] - (1-2 days for reevaluation) Instructions: Shortness of Breath (Dyspnea) (DC), Exacerbation of COPD (DC) Additional Instructions: Use neb treatments every 6 hourly as needed. Continue with oral steroids and antibiotics. Follow-up with your primary care doctor for reevaluation in 1 to 2 days. Return to ER for worsening shortness of breath, cough fever chills etc.
[2020-11-17] MEDS ORDERED: solu-MEDROL ONE (11:02)
[2020-11-17] MEDS ORDERED: Sterile H2O 10 ml IJ ONE (11:02)
[2020-11-17 11:19] LABS: Absolute Neutrophil Ct (ANC) 11.59 (1.4-6.9); BASOPHIL % 0.1 % (0.0-0.4); Basophil (Absolute #) 0.01 (0-0.4); Eosinophil (Absolute #) 0 (0-0.5); Hematocrit 44.3 % (35-47); Hemoglobin 14.5 gm/dl (12.0-16.0); Lymphocyte (Absolute #) 0.46 (1.0-4.6); Lymphocytes % 3.7 % (24.0-44.0); Mean Cell Volume 95.5 fl (78-100); Mean Corpuscular Hemoglobin 31.3 pg (26-32); Mean Corpuscular Hgb Concent. 32.7 g/dl (32-36); Monocyte (Absolute #) 0.41 (0.0-1.3); Monocytes % 3.3 % (0.0-12.0); Neutrophil % 92.9 % (36.0-66.0); Platelet Count 341 K/mm3 (150-450); Red Blood Count 4.64 M/mm3 (4.1-5.4); Red Cell Distribution Width 13.2 % (11.5-14.0); White Blood Count 12.5 K/mm3 (4.0-10.5)
[2020-11-17 11:31] VITALS: PULSE 102
[2020-11-17 11:36] LABS: ALBUMIN 4.2 g/dL (3.5-5.0); ALKALINE PHOSPHATASE 66 U/L (38-126); ANION GAP 11.3 MEQ/L (5-15); BLOOD UREA NITROGEN 23 mg/dL (7-17); CHLORIDE 94 mmol/L (98-107); Carbon Dioxide 29 mmol/L (22-30); Creatinine 1 0.93 mg/dL (0.52-1.04); EST GLOMERULAR FILTRATION RATE > 60.0 ML/MIN; Glucose 106 mg/dL (74-106); MAGNESIUM 1.8 mg/dL (1.6-2.3); NT PRO BNP 410 pg/mL (0-1800); Potassium 4.6 mmol/L (3.5-5.1); SGOT/AST 29 U/L (14-36); SGPT/ALT 26 U/L (0-35); SODIUM 130 mmol/L (137-145); Total Protein 7.3 g/dL (6.3-8.2)
[2020-11-17 11:38] LABS: Slide Review 1 YES
[2020-11-17 12:09] VITALS: BP 139/81; O2SAT 95
--- NOTE | 2020-11-17 19:28 | XRAY ---
Indication: Short of breath. COPD. Comparison: May 09, 2019. Portable chest rotated and remains hyperinflated and clear. Heart not enlarged. Bony thorax intact again with osteopenia, degenerative changes, scoliosis. No new/acute findings.
== END 2020-11-17 12:21 | disposition home or self-care (01) ==
LOC: ED 10:26
DX: J44.1 Chronic obstructive pulmonary disease with (acute) exacerbation (principal); I10 Essential (primary) hypertension; R50.9 Fever, unspecified; R07.9 Chest pain, unspecified; R06.2 Wheezing; Z79.899 Other long term (current) drug therapy; R53.83 Other fatigue; M79.18 Myalgia, other site
CPT/HCPCS: 36000; 36415; 71045; 80053; 83605; 83735; 83880; 84484; 85025; 87040; 93005; 93041; 94640; 96374; 99284; J2930; A9270-GY

== ENCOUNTER 2023-10-23 18:56 | Observation (INO) | payer MEDICARE ==
--- NOTE | 2023-10-23 19:06 | ERPHSYRPT ---
- History of Present Illness Time Seen by Provider: 10/23/23 19:05 Source: patient, family Exam Limitations: clinical condition Physician History: This is an 83-year-old white female who walked into the emergency room by private vehicle with complaints of shortness of breath. Patient's primary care provider is Dr. Sharp. Patient is an elderly cachectic appearing female who has recurrent episodes of bronchitis and recurrent episodes of COPD. She also has a history of anxiety and hypertension. On arrival today, the patient's room air oxygen saturation level was 83%. She denies chest pain. She is a former smoker of cigarettes. She smoked for 30 years. Patient had a twelve-lead EKG performed on 11/17/2020 which I reviewed the results of. Patient had a heart rate of 107 and was sinus tachycardia but no other acute findings. Patient states that she was doing fine until today. Patient states that she had been in [facility] in the last few days and was feeling fine. Her symptoms began this morning Timing/Duration: today, worse Activities at Onset: none Severity of Dyspnea-Max: moderate Severity of Dyspnea-Current: moderate Possible Cause: occasional episodes, chronic episodes Modifying Factors: Improves With: oxygen (Improved) Associated Symptoms: No chest pain/discomfort, No fever Allergies/Adverse Reactions: Sulfa (Sulfonamide Antibiotics) Allergy (Severe, Verified 10/23/23 19:00) TONGUE ROSARIO azithromycin [From Zithromax Z-Deuce] Allergy (Verified 10/23/23 19:00) phenobarbital Adverse Reaction (Severe, Verified 10/23/23 19:00) Rash Home Medications: Aspirin [Ecotrin] 81 mg PO DAILY 08/21/14 [History] Calcium Carbonate/Vitamin D3 [Calcium 500-Vit D3 400 Tablet] 1 each PO DAILY 08/21/14 [History] Multivitamin [Multivitamins] 1 each PO DAILY 08/21/14 [History] Telmisartan [Micardis] 40 mg PO DAILY 08/21/14 [History] Tiotropium [place] [Spiriva] 18 mcg IH DAILY 11/25/14 [History] Budesonide 0.5 mg/2 ml [Pulmicort 0.5 mg/2 ml Respules] 0.5 mg IH BID 04/17/15 [History] Fluticasone/Umeclidin/Vilanter [Trelegy Ellipta 100-62.5-25] 1 puff PO DAILY 10/23/23 [History] Mirtazapine 7.5 mg PO DAILY 10/23/23 [History] Venlafaxine HCl [Venlafaxine HCl ER] 75 mg PO DAILY 10/23/23 [History] Hx Tetanus, Diphtheria Vaccination/Date Given: No Hx Influenza Vaccination/Date Given: Yes Hx Pneumococcal Vaccination/Date Given: Yes Travel Risk - International Travel Have you traveled outside of the country in past 3 weeks: No - Emerging Infectious Disease Are you exhibiting symptoms associated with any current EIDs: Yes Symptoms: Shortness of Breath - Review of Systems Constitutional: No Symptoms Eyes: No Symptoms Ears, Nose, & Throat: No Symptoms Respiratory: Dyspnea Cardiac: No Symptoms Abdominal/Gastrointestinal: No Symptoms Genitourinary Symptoms: No Symptoms Musculoskeletal: No Symptoms Skin: No Symptoms Neurological: No Symptoms Psychological: No Symptoms Endocrine: No Symptoms Hematologic/Lymphatic: No Symptoms Immunological/Allergic: No Symptoms All Other Systems: Reviewed and Negative - Past Medical History Pertinent Past Medical History: Yes Neurological History: No Pertinent History ENT History: No Pertinent History Cardiac History: Hypertension Respiratory History: COPD Endocrine Medical History: No Pertinent History Musculoskeletal History: No Pertinent History GI Medical History: No Pertinent History History: No Pertinent History Psycho-Social History: Anxiety Female Reproductive Disorders: No Pertinent History - Past Surgical History Past Surgical History: Yes (rectal fistula) Neuro Surgical History: No Pertinent History Cardiac: No Pertinent History Respiratory: No Pertinent History Gastrointestinal: No Pertinent History Genitourinary: No Pertinent History Musculoskeletal: No Pertinent History Female Surgical History: No Pertinent History, Tubal Ligation Other Surgical History: RECTAL CYST - Social History Smoking Status: Former smoker How long have you smoked: 30 Exposure to second hand smoke: Yes Drug Use: none Patient Lives Alone: Yes - Nursing Vital Signs Nursing Vital Signs: Initial Vital Signs Temperature 98.4 F 10/23/23 19:00 Pulse Rate 114 H 10/23/23 19:00 Respiratory Rate 30 H 10/23/23 19:00 Blood Pressure 91/54 10/23/23 19:00 O2 Sat by Pulse Oximetry 83 L 10/23/23 19:00 Pain Scale Pain Intensity 0 - Physical Exam General Appearance: mild distress, alert, anxiety, cachetic Eye Exam: PERRL/EOMI, eyes nml inspection Ears, Nose, Throat Exam: hearing grossly normal, normal ENT inspection, normal pharynx Neck Exam: normal inspection, non-tender, supple, full range of motion Respiratory Exam: respiratory distress, airway intact, rhonchi, No chest tenderness Cardiovascular/Chest Exam: tachycardia Abdominal/Gastrointestinal Exam: soft, normal bowel sounds, No tenderness Rectal Exam: not done Extremity Exam: non-tender, normal range of motion, normal inspection, no calf tenderness, no pedal edema, pelvis stable Neurologic Exam: alert, oriented x 3, cooperative, 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, nml cerebellar function, nml station & gait, sensation nml Skin Exam: normal color, warm, dry Lymphatic Exam: No adenopathy SpO2 Interpretation: normal O2 Delivery: Room Air - Course Nursing assessment & vital signs reviewed: Yes EKG Interpreted by Me: RATE ([id number]), Sinus Rhythm, Sinus Tach, NORMAL AXIS, NORMAL INTERVALS, Other (Acute ischemic changes on today's twelve-lead EKG) Ordered Tests: Active Orders 24 hr Category Date Time Status Special Agent In Charge STAT Care 10/23/23 19:06 Active EKG-ER Only STAT Care 10/23/23 19:06 Active IV Insertion STAT Care 10/23/23 19:06 Active Oxygen-ED Only Nasal Cannula 4 lpm Care 10/23/23 19:06 Active Pulse Oximetry (ED) STAT Care 10/23/23 19:06 Active CHEST 1 VIEW (PORTABLE) Stat Exams 10/23/23 19:06 Completed ARTERIAL BLOOD GASES Stat Lab 10/23/23 19:06 Completed BLOOD CULTURE Stat Lab 10/23/23 19:30 Received CBC W DIFF Stat Lab 10/23/23 19:25 Completed CMP Stat Lab 10/23/23 19:25 Completed Lactic Acid Stat Lab 10/23/23 19:06 Completed MAGNESIUM Stat Lab 10/23/23 19:25 Completed NT PRO BNPII Stat Lab 10/23/23 19:25 Completed TROPONIN Q4H Lab 10/23/23 19:25 Completed TROPONIN Q4H Lab 10/23/23 23:15 Ordered TROPONIN Q4H Lab 10/24/23 03:15 Ordered Medication Summary Generic Name Dose Route Start Last Admin Trade Name Freq PRN Reason Stop Dose Admin Sodium Chloride 1,000 mls @ 100 mls/hr 10/23/23 19:45 10/23/23 19:52 Sodium Chloride 0.9% 1000 Ml IV 11/22/23 19:44 100 mls/hr .Q10H ADELITA Administration Levofloxacin/Dextrose 500 mg in 100 mls @ 100 mls/hr 10/23/23 20:56 10/23/23 21:01 Levofloxacin 500mg/100ml D5w IV 10/23/23 21:55 100 ml/hr STAT STA 100 mls/hr Administration Discontinued Medications Generic Name Dose Route Start Last Admin Trade Name Wendi PRN Reason Stop Dose Admin Levofloxacin/Dextrose Confirm 10/23/23 20:58 Levofloxacin 500mg/100ml D5w Administered 10/23/23 20:59 Dose 500 mg in 100 mls @ ud IV .[facility] Lab/Rad Data: Laboratory Result Diagrams 10/23/23 19:25 10/23/23 19:25 Laboratory Results 10/23/23 10/23/23 10/23/23 Range/Units 19:30 19:25 19:25 WBC (3.98-10.04) x10^3/uL RBC (3.93-5.22) x10^6/uL Hgb (11.2-15.7) g/dL Hct (34.1-44.9) % MCV (79.4-94.8) fL MCH (25.6-32.2) pg MCHC (32.2-35.5) g/dL RDW (11.7-14.4) % Plt Count (182-369) x10^3/uL MPV (9.4-12.3) fL Gran % (34.0-71.1) % Immature Gran % (Auto) (0.001-0.429) % Nucleat RBC Rel Count (0.00-0.2) % Eos # (Auto) (0.04-0.36) x10^3/uL Immature Gran # (Auto) (0.001-0.031) x10^3u/L Absolute Lymphs (auto) (1.18-3.74) x10^3/uL Absolute Monos (auto) (0.24-0.86) x10^3/uL Absolute Nucleated RBC (0.00-0.012) x10^3u/L Lymphocytes % (19.3-51.7) % Monocytes % (4.7-12.5) % Eosinophils % (0.7-5.8) % Basophils % (0.1-1.2) % Absolute Granulocytes (1.56-6.13) x10^3/uL Basophils # (0.01-0.08) x10^3/uL Puncture Site pCO2 (35-45) mmHg pO2 (75-100) mmHg Base Excess (-2.0-2.0) O2 Saturation (94-100) g/dF ABG pH (7.35-7.45) ABG HCO3 (22-28) ABG O2 Sat (Measured) (95-100) % Rodney Test A-a Gradient a/A Ratio Hemoglobin Carboxyhemoglobin (0.0-6.9) % THgb Methemoglobin (1.4-1.5) % Potassium 3.9 (3.5-5.1) Temperature C POC O2 Flow Rate % Sodium 134 L (135-145) mmol/L Chloride 99 (98-107) mmol/L Carbon Dioxide 23 (22-30) mmol/L Anion Gap 15.2 H (5-15) MEQ/L BUN 25 H (7-17) mg/dL Creatinine 1.05 H (0.52-1.04) mg/dL Estimated GFR 53.4 ML/MIN Glucose 125 H (74-106) mg/dL Lactic Acid (0.4-2.0) Calcium 8.4 (8.4-10.2) mg/dL Magnesium 1.9 (1.6-2.3) mg/dL Total Bilirubin 0.70 (0.2-1.3) mg/dL AST 22 (14-36) U/L ALT 18 (0-35) U/L Alkaline Phosphatase 97 (38-126) U/L Troponin I < 0.012 (0.000-0.033) ng/mL NT-Pro-B Natriuret Pep 910 (<300) pg/mL Serum Total Protein 7.2 (6.3-8.2) g/dL Albumin 3.7 (3.5-5.0) g/dL Influenza Type A Ag NEGATIVE (NEGATIVE) Influenza Type B Ag NEGATIVE (NEGATIVE) RSV (PCR) NEGATIVE (NEGATIVE) SARS-CoV-2 (PCR) NEGATIVE (NEGATIVE) 10/23/23 10/23/23 Range/Units 19:25 19:06 WBC 13.6 H (3.98-10.04) x10^3/uL RBC 4.06 (3.93-5.22) x10^6/uL Hgb 12.3 (11.2-15.7) g/dL Hct 37.5 (34.1-44.9) % MCV 92.4 (79.4-94.8) fL MCH 30.3 (25.6-32.2) pg MCHC 32.8 (32.2-35.5) g/dL RDW 13.0 (11.7-14.4) % Plt Count 362 (182-369) x10^3/uL MPV 9.2 L (9.4-12.3) fL Gran % 81.7 H (34.0-71.1) % Immature Gran % (Auto) 0.4 (0.001-0.429) % Nucleat RBC Rel Count 0.0 (0.00-0.2) % Eos # (Auto) 0.11 (0.04-0.36) x10^3/uL Immature Gran # (Auto) 0.06 H (0.001-0.031) x10^3u/L Absolute Lymphs (auto) 1.30 (1.18-3.74) x10^3/uL Absolute Monos (auto) 0.99 H (0.24-0.86) x10^3/uL Absolute Nucleated RBC 0.00 (0.00-0.012) x10^3u/L Lymphocytes % 9.6 L (19.3-51.7) % Monocytes % 7.3 (4.7-12.5) % Eosinophils % 0.8 (0.7-5.8) % Basophils % 0.2 (0.1-1.2) % Absolute Granulocytes 11.09 H (1.56-6.13) x10^3/uL Basophils # 0.03 (0.01-0.08) x10^3/uL Puncture Site RRA pCO2 38 (35-45) mmHg pO2 71 L (75-100) mmHg Base Excess 3.1 H (-2.0-2.0) O2 Saturation 94.3 (94-100) g/dF ABG pH 7.46 H (7.35-7.45) ABG HCO3 27.0 (22-28) ABG O2 Sat (Measured) 96.1 (95-100) % Rodney Test yes A-a Gradient 167 a/A Ratio 0.30 Hemoglobin 12.2 Carboxyhemoglobin 1.1 (0.0-6.9) % THgb Methemoglobin 0.9 L (1.4-1.5) % Potassium 3.7 (3.5-5.1) Temperature 37.0 C POC O2 Flow Rate 40 % Sodium (135-145) mmol/L Chloride (98-107) mmol/L Carbon Dioxide (22-30) mmol/L Anion Gap (5-15) MEQ/L BUN (7-17) mg/dL Creatinine (0.52-1.04) mg/dL Estimated GFR ML/MIN Glucose (74-106) mg/dL Lactic Acid 0.9 (0.4-2.0) Calcium (8.4-10.2) mg/dL Magnesium (1.6-2.3) mg/dL Total Bilirubin (0.2-1.3) mg/dL AST (14-36) U/L ALT (0-35) U/L Alkaline Phosphatase (38-126) U/L Troponin I (0.000-0.033) ng/mL NT-Pro-B Natriuret Pep (<300) pg/mL Serum Total Protein (6.3-8.2) g/dL Albumin (3.5-5.0) g/dL Influenza Type A Ag (NEGATIVE) Influenza Type B Ag (NEGATIVE) RSV (PCR) (NEGATIVE) SARS-CoV-2 (PCR) (NEGATIVE) - Progress Progress: improved, re-examined Air Movement: fair Progress Note: 10/23/23 19:25 My medical decision making and the assignment of moderate to high complexity of this patient's medical issue today is based on review of the patient's past medical history, review of the patient's medication list, review of patient drug allergy list, history present illness and physical findings on examination. Th e workup in this patient includes placement of intravenous line, placement of 4 L of oxygen via nasal cannula, respiratory therapy consultation with nebulizer treatment, twelve-lead EKG, D-dimer, BNP, troponin level, CBC, CMP and lactic acid level. We also ordered viral swabs and a chest x-ray. Differential diagnosis includes but is not limited to COPD exacerbation, recurrent bronchitis, pneumonia, CHF, electrolyte abnormalities, arrhythmia, myocardial infarction, viral illness 10/23/23 20:58 I interpreted the patient's preliminary chest x-ray report. There is bibasilar infiltrate versus atelectasis and questionable tiny bilateral pleural effusions. I interpreted the patient's laboratory data results. There is leukocytosis with a left shift. She has a normal lactic acid level, very slight elevated anion gap 10/23/23 21:[address] Blayne Chan. I reviewed the patient history, presenting complaint, physical findings on examination, radiographic, EKG and laboratory data results. Patient will be placed in observation. We will place the patient on Levaquin antibiotic intravenously. Blood Culture(s) Obtained: Yes Counseled pt/family regarding: lab results, diagnosis, rad results Medical Desision Making - Independent Historian Additional History obtained from: Child (Patient's daughter) - Discussion of managment Care discussed with:: hospitalist Agreed on:: Treatment plan, place in obs - Diagnostic Testing Diagnostic test were ordered, analyzed, and reviewed by me: Yes Radiological Interpretation: Interpreted by me - Risk of complications The pt has a high risk of morbidity or mortality based on: Decision regarding hospitilization or escalation of hosp level of care - Departure Departure Disposition: Observation Clinical Impression: Leukocytosis, Hypoxia, Bilateral pulmonary infiltrates on chest x-ray Condition: Stable Critical Care Time: Yes Critical Care Time(excluding separately billable procedures): Critical 30-74 mins (40 minutes) Referrals: CELIA SHARP MD [Primary Care Provider] - Follow up/PCP as directed
[2023-10-23 19:25] LABS: A-aADO2 167; ABG HEMOGLOBIN 12.2; ABG POTASSIUM 3.7 (3.5-5.1); ABG SITE RRA; ALLEN TEST OK? yes; ARTERIAL BLD GAS O2 SATURATION 96.1 % (95-100); ARTERIAL BLOOD GAS BASE EXCESS 3.1 (-2.0-2.0); ARTERIAL BLOOD GAS FIO2 40 %; ARTERIAL BLOOD GAS PCO2 38 mmHg (35-45); ARTERIAL BLOOD GAS PO2 71 mmHg (75-100); ARTERIAL BLOOD GAS pH 7.46 (7.35-7.45); CARBOXYHEMOGLOBIN 1.1 % THgb (0.0-6.9); HGB O2 SAT 94.3 g/dF (94-100); Lactic Acid 0.9 (0.4-2.0); Methhemoglobin 0.9 % (1.4-1.5)
[2023-10-23] MEDS ORDERED: Sodium Chloride 0.9% 1000 ML 1,000 ML ONE (19:47)
[2023-10-23 19:51] LABS: Absolute Neutrophil Ct (ANC) 11.09 x10^3/uL (1.56-6.13); BASOPHIL % 0.2 % (0.1-1.2); Basophil (Absolute #) 0.03 x10^3/uL (0.01-0.08); Eosinophil % 0.8 % (0.7-5.8); Eosinophil (Absolute #) 0.11 x10^3/uL (0.04-0.36); Hematocrit 37.5 % (34.1-44.9); Hemoglobin 12.3 g/dL (11.2-15.7); IMMATURE GRAN # 0.06 x10^3u/L (0.001-0.031); IMMATURE GRAN % 0.4 % (0.001-0.429); Lymphocytes % 9.6 % (19.3-51.7); Mean Cell Volume 92.4 fL (79.4-94.8); Mean Corpuscular Hemoglobin 30.3 pg (25.6-32.2); Mean Corpuscular Hgb Concent. 32.8 g/dL (32.2-35.5); Mean Platelet Volume 9.2 fL (9.4-12.3); Monocyte (Absolute #) 0.99 x10^3/uL (0.24-0.86); Monocytes % 7.3 % (4.7-12.5); Neutrophil % 81.7 % (34.0-71.1); Platelet Count 362 x10^3/uL (182-369); Red Blood Count 4.06 x10^6/uL (3.93-5.22); White Blood Count 13.6 x10^3/uL (3.98-10.04)
[2023-10-23] MEDS: Sodium Chloride 0.9% 1000 ML 1,000 ML IV SCH (19:52)
[2023-10-23 19:58] LABS: ALBUMIN 3.7 g/dL (3.5-5.0); ANION GAP 15.2 MEQ/L (5-15); BILIRUBIN,TOTAL 0.7 mg/dL (0.2-1.3); Calcium 8.4 mg/dL (8.4-10.2); Creatinine 1 1.05 mg/dL (0.52-1.04); EST GLOMERULAR FILTRATION RATE 53.4 ML/MIN; MAGNESIUM 1.9 mg/dL (1.6-2.3); Potassium 3.9 mmol/L (3.5-5.1); Total Protein 7.2 g/dL (6.3-8.2)
[2023-10-23 20:10] LABS: NT PRO BNPII 910 pg/mL (<300); TROPONIN < 0.012 ng/mL (0.000-0.033)
[2023-10-23 20:48] LABS: INFLUENZA A NEGATIVE (NEGATIVE); INFLUENZA B NEGATIVE (NEGATIVE); RESPIRATORY SYNCTIAL VIRUS NEGATIVE (NEGATIVE); SARS-CoV-2 Xpert Express NEGATIVE (NEGATIVE)
--- NOTE | 2023-10-23 20:53 | XRAY ---
Indication: Short of breath. Hypoxia. Comparison: March 19, 2021 Portable chest demonstrates new minimal bibasilar infiltrates/atelectasis/effusions, right greater than left. Heart not enlarged. Bony thorax intact again with osteopenia, degenerative changes, and scoliosis.
[2023-10-23] MEDS ORDERED: Levofloxacin 500MG/100ML D5W 500 MG/100 ML BAG IV ONE (20:58)
[2023-10-23] MEDS: Levofloxacin 500MG/100ML D5W 500 MG/100 ML BAG IV STA (21:01)
--- NOTE | 2023-10-23 21:21 | PCM.HP ---
History of Present Illness - Chief Complaint Chief Complaint: Pneumonia History of Present Illness: is a 83 year old female with COPD who presents with progressive shortness of breath, cough, fever and found to be hypoxic and imaging consistent with bilateral pneumonia. No chest pain, wheezing. - Review of Systems Constitutional: No Fever, No Chills Eyes: No Symptoms Ears, Nose, & Throat: No Symptoms Respiratory: Cough, Orthopnea Cardiac: No Chest Pain, No Edema, No Syncope Abdominal/Gastrointestinal: No Abdominal Pain, No Nausea, No Vomiting, No Diarrhea Genitourinary Symptoms: No Dysuria Musculoskeletal: No Back Pain, No Neck Pain Skin: No Rash Neurological: No Dizziness, No Focal Weakness, No Sensory Changes Psychological: No Symptoms Endocrine: No Symptoms Hematologic/Lymphatic: No Symptoms Immunological/Allergic: No Symptoms Medications & Allergies Home Medications: Home Medication List Aspirin [Ecotrin] 81 mg PO DAILY 08/21/14 [History Confirmed 10/23/23] Calcium Carbonate/Vitamin D3 [Calcium 500-Vit D3 400 Tablet] 1 each PO DAILY 08/21/14 [History Confirmed 10/23/23] Multivitamin [Multivitamins] 1 each PO DAILY 08/21/14 [History Confirmed 10/23/23] Telmisartan [Micardis] 40 mg PO DAILY 08/21/14 [History Confirmed 10/23/23] Albuterol Sulfate [Proair Hfa] 8.5 gm IH DAILY #2 [id number] 08/23/14 [Rx Confirmed 10/23/23] ALPRAZolam [Xanax 0.5 mg] 0.5 mg PO BID PRN PRN #0 tablet 09/28/14 [Rx Confirmed 10/23/23] Tiotropium [place] [Spiriva] 18 mcg IH DAILY 11/25/14 [History Confirmed 10/23/23] Budesonide 0.5 mg/2 ml [Pulmicort 0.5 mg/2 ml Respules] 0.5 mg IH BID 04/17/15 [History Confirmed 10/23/23] Fluticasone/Umeclidin/Vilanter [Trelegy Ellipta 100-62.5-25] 1 puff PO DAILY 10/23/23 [History Confirmed 10/23/23] Mirtazapine 7.5 mg PO DAILY 10/23/23 [History Confirmed 10/23/23] Venlafaxine HCl [Venlafaxine HCl ER] 75 mg PO DAILY 10/23/23 [History Confirmed 10/23/23] Allergies/Adverse Reactions: Allergies Allergy/AdvReac Type Severity Reaction Status Date / Time Sulfa (Sulfonamide Allergy Severe TONGUE Verified 10/23/23 19:00 Antibiotics) ROSARIO azithromycin Allergy Verified 10/23/23 19:00 [From Zithromax Z-Deuce] phenobarbital AdvReac Severe Rash Verified 10/23/23 19:00 - Past Medical History Past Medical History: Yes Neurological History: No Pertinent History ENT History: No Pertinent History Cardiac History: Hypertension Respiratory History: COPD Endocrine Medical History: No Pertinent History Musculoskelatal History: No Pertinent History GI Medical History: No Pertinent History History: No Pertinent History Pyscho-Social History: Anxiety Reproductive Disorders: No Pertinent History - Past Surgical History Past Surgical History: Yes (rectal fistula) Neuro Surgical History: No Pertinent History Cardiac History: No Pertinent History Respiratory Surgery: No Pertinent History GI Surgical History: No Pertinent History Genitourinary Surgical Hx: No Pertinent History Musculskeletal Surgical Hx: No Pertinent History Female Surgical History: No Pertinent History, Tubal Ligation Other Surgical History: RECTAL CYST - Social History Smoking Status: Former smoker How long have you smoked: 30 Exposure to second hand smoke: Yes Alcohol: None Drug Use: none - Social Determinants of Health Will the patient participate in the screening: Yes Do you worry about a steady place to live?: No Do you have any problems with any of the following?: No known problems In the past 12 months,have you had to go without utilities?: No Have you or anyone in your house had to go without enough: No Transportation Issues: No Has anyone in your support network made you feel unsafe?: No - Physical Exam Vital Signs: Vital Signs - 24 hr Temp Pulse Resp BP BP Pulse Ox 10/23/23 21:00 102 H 27 H 108/52 97 10/23/23 20:30 97 H 37 H 103/48 97 10/23/23 20:10 108 H 21 119/64 80 L 10/23/23 19:34 99 H 37 H 83/44 94 L 10/23/23 19:33 105 H 33 H 83/46 95 10/23/23 19:14 83 L 10/23/23 19:02 109 H 34 H 91/54 92 L 10/23/23 19:00 98.4 F 114 H 30 H 83 L General Appearance: no apparent distress, alert Neurologic Exam: alert, oriented x 3, cooperative, normal mood/affect, nml cerebellar function, nml station & gait, sensation nml, No motor deficits Eye Exam: PERRL/EOMI, eyes nml inspection Ears, Nose, Throat Exam: normal ENT inspection, TMs normal, pharynx normal, moist mucous membranes Neck Exam: normal inspection, non-tender, supple, full range of motion Respiratory Exam: normal breath sounds, lungs clear, No respiratory distress Cardiovascular Exam: regular rate/rhythm, normal heart sounds, normal peripheral pulses Gastrointestinal/Abdomen Exam: soft, normal bowel sounds, No tenderness, No mass Back Exam: normal inspection, normal range of motion, No CVA tenderness, No vertebral tenderness Extremity Exam: normal inspection, normal range of motion, pelvis stable Skin Exam: normal color, warm, dry, No rash Lymphatic Exam: No adenopathy Results - Labs Lab/Micro Results: Lab Results-Last 24 Hours 10/23/23 10/23/23 10/23/23 Range/Units 19:06 19:25 19:25 WBC 13.6 H (3.98-10.04) x10^3/uL RBC 4.06 (3.93-5.22) x10^6/uL Hgb 12.3 (11.2-15.7) g/dL Hct 37.5 (34.1-44.9) % MCV 92.4 (79.4-94.8) fL MCH 30.3 (25.6-32.2) pg MCHC 32.8 (32.2-35.5) g/dL RDW 13.0 (11.7-14.4) % Plt Count 362 (182-369) x10^3/uL MPV 9.2 L (9.4-12.3) fL Gran % 81.7 H (34.0-71.1) % Immature Gran % (Auto) 0.4 (0.001-0.429) % Nucleat RBC Rel Count 0.0 (0.00-0.2) % Eos # (Auto) 0.11 (0.04-0.36) x10^3/uL Immature Gran # (Auto) 0.06 H (0.001-0.031) x10^3u/L Absolute Lymphs (auto) 1.30 (1.18-3.74) x10^3/uL Absolute Monos (auto) 0.99 H (0.24-0.86) x10^3/uL Absolute Nucleated RBC 0.00 (0.00-0.012) x10^3u/L Lymphocytes % 9.6 L (19.3-51.7) % Monocytes % 7.3 (4.7-12.5) % Eosinophils % 0.8 (0.7-5.8) % Basophils % 0.2 (0.1-1.2) % Absolute Granulocytes 11.09 H (1.56-6.13) x10^3/uL Basophils # 0.03 (0.01-0.08) x10^3/uL Puncture Site RRA pCO2 38 (35-45) mmHg pO2 71 L (75-100) mmHg Base Excess 3.1 H (-2.0-2.0) O2 Saturation 94.3 (94-100) g/dF ABG pH 7.46 H (7.35-7.45) ABG HCO3 27.0 (22-28) ABG O2 Sat (Measured) 96.1 (95-100) % Rodney Test yes A-a Gradient 167 a/A Ratio 0.30 Hemoglobin 12.2 Carboxyhemoglobin 1.1 (0.0-6.9) % THgb Methemoglobin 0.9 L (1.4-1.5) % Potassium 3.7 3.9 (3.5-5.1) Temperature 37.0 C POC O2 Flow Rate 40 % Sodium 134 L (135-145) mmol/L Chloride 99 (98-107) mmol/L Carbon Dioxide 23 (22-30) mmol/L Anion Gap 15.2 H (5-15) MEQ/L BUN 25 H (7-17) mg/dL Creatinine 1.05 H (0.52-1.04) mg/dL Estimated GFR 53.4 ML/MIN Glucose 125 H (74-106) mg/dL Lactic Acid 0.9 (0.4-2.0) Calcium 8.4 (8.4-10.2) mg/dL Magnesium 1.9 (1.6-2.3) mg/dL Total Bilirubin 0.70 (0.2-1.3) mg/dL AST 22 (14-36) U/L ALT 18 (0-35) U/L Alkaline Phosphatase 97 (38-126) U/L Troponin I (0.000-0.033) ng/mL NT-Pro-B Natriuret Pep (<300) pg/mL Serum Total Protein 7.2 (6.3-8.2) g/dL Albumin 3.7 (3.5-5.0) g/dL Influenza Type A Ag (NEGATIVE) Influenza Type B Ag (NEGATIVE) RSV (PCR) (NEGATIVE) SARS-CoV-2 (PCR) (NEGATIVE) 10/23/23 10/23/23 Range/Units 19:25 19:30 WBC (3.98-10.04) x10^3/uL RBC (3.93-5.22) x10^6/uL Hgb (11.2-15.7) g/dL Hct (34.1-44.9) % MCV (79.4-94.8) fL MCH (25.6-32.2) pg MCHC (32.2-35.5) g/dL RDW (11.7-14.4) % Plt Count (182-369) x10^3/uL MPV (9.4-12.3) fL Gran % (34.0-71.1) % Immature Gran % (Auto) (0.001-0.429) % Nucleat RBC Rel Count (0.00-0.2) % Eos # (Auto) (0.04-0.36) x10^3/uL Immature Gran # (Auto) (0.001-0.031) x10^3u/L Absolute Lymphs (auto) (1.18-3.74) x10^3/uL Absolute Monos (auto) (0.24-0.86) x10^3/uL Absolute Nucleated RBC (0.00-0.012) x10^3u/L Lymphocytes % (19.3-51.7) % Monocytes % (4.7-12.5) % Eosinophils % (0.7-5.8) % Basophils % (0.1-1.2) % Absolute Granulocytes (1.56-6.13) x10^3/uL Basophils # (0.01-0.08) x10^3/uL Puncture Site pCO2 (35-45) mmHg pO2 (75-100) mmHg Base Excess (-2.0-2.0) O2 Saturation (94-100) g/dF ABG pH (7.35-7.45) ABG HCO3 (22-28) ABG O2 Sat (Measured) (95-100) % Rodney Test A-a Gradient a/A Ratio Hemoglobin Carboxyhemoglobin (0.0-6.9) % THgb Methemoglobin (1.4-1.5) % Potassium (3.5-5.1) Temperature C POC O2 Flow Rate % Sodium (135-145) mmol/L Chloride (98-107) mmol/L Carbon Dioxide (22-30) mmol/L Anion Gap (5-15) MEQ/L BUN (7-17) mg/dL Creatinine (0.52-1.04) mg/dL Estimated GFR ML/MIN Glucose (74-106) mg/dL Lactic Acid (0.4-2.0) Calcium (8.4-10.2) mg/dL Magnesium (1.6-2.3) mg/dL Total Bilirubin (0.2-1.3) mg/dL AST (14-36) U/L ALT (0-35) U/L Alkaline Phosphatase (38-126) U/L Troponin I < 0.012 (0.000-0.033) ng/mL NT-Pro-B Natriuret Pep 910 (<300) pg/mL Serum Total Protein (6.3-8.2) g/dL Albumin (3.5-5.0) g/dL Influenza Type A Ag NEGATIVE (NEGATIVE) Influenza Type B Ag NEGATIVE (NEGATIVE) RSV (PCR) NEGATIVE (NEGATIVE) SARS-CoV-2 (PCR) NEGATIVE (NEGATIVE) - Radiology Impressions Radiology Exams & Impressions: Radiology Procedures Category Date Time Status CHEST 1 VIEW (PORTABLE) Stat Exams 10/23/23 19:06 Completed Assessment/Plan (1) Bilateral pulmonary infiltrates on chest x-ray Current Visit: Yes Status: Acute Assessment & Plan: PNA 1. Started Levauqin in ED 2. Duonebs PRN 3. Continue supplemental oxygen Code(s): R91.8 - OTHER NONSPECIFIC ABNORMAL FINDING OF LUNG FIELD Telemedicine Encounter - Telemedicine Encounter Telemedicine Encounter: The entirety of this encounter was performed via Telemedicine"
[2023-10-23 21:39] LABS: Appearance Clear (Clear); Bacteria None Seen /HPF (None Seen); Bilirubin Negative (Negative); Blood Negative (Negative); Epithelial Cells None Seen /HPF (None Seen); Glucose, Urine Negative (Negative); Ketones Trace (Negative); Leukocyte Esterase Small (Negative); Nitrite Negative (Negative); Protein,Urine Dip Trace (Negative); Specific Gravity 1.025 (1.005-1.030); WBC 21-50 /HPF (0-5)
[2023-10-23 21:40] LABS: ADD URINE CULTURE? NO (NO)
[2023-10-23] MEDS ORDERED: Zofran 4 MG/2 ML VIAL IV PRN (22:36)
[2023-10-23] MEDS: xanAX 0.5 MG PO PRN (23:33)
[2023-10-24] MEDS: NON-FORMULARY ITEM (Mirtazapine [Mirtazapine] 7.5 MG Tablet) PO SCH (00:18)
[2023-10-24] MEDS: TYLENOL 325 MG PO PRN (04:26)
[2023-10-24] MEDS: Sodium Chloride 0.9% 1000 ML 1,000 ML IV SCH (05:31)
--- NOTE | 2023-10-24 05:51 | PCM.NOTE ---
Date and Time: 10/24/23 0545 Subjective Assessment: is a 83 year old female with COPD, HTN, and anxiety admitted 10/23/23 with pneumonia/EGOVANNA after experiencing progressive shortness of breath. Patient is an elderly cachectic appearing female who has recurrent episodes of bronchitis and recurrent episodes of COPD. CXR imaging demonstrates new minimal bibasilar infiltrate R>L. Initial lab findings with leukocytosis and GEOVANNA. 10/23: Met with patient bedside. Endorses improvement of dyspnea overnight. Still on oxymask at 2L. Endorses productive cough with green sputum. Bilateral lung sounds with crackles throughout and exp wheezing (anteriorly). Patient reports that she did just get back two days ago from a 7.5 hour car ride. Will check DDimer and CT chest to r/o PE. Denies fever cp, abdominal pain, THORPE, dizziness, N/V/D. - Review of Systems Constitutional: No Symptoms Eyes: No Symptoms Ears, Nose, & Throat: No Symptoms Respiratory: Cough, Short Of Breath Cardiac: No Symptoms Abdominal/Gastrointestinal: No Symptoms Genitourinary Symptoms: No Symptoms Musculoskeletal: No Symptoms Skin: No Symptoms, Other (LLE edema-chronic per pt around ankle from old injury) Neurological: No Symptoms Psychological: No Symptoms Endocrine: No Symptoms Hematologic/Lymphatic: No Symptoms Immunological/Allergic: No Symptoms Objective Exam General Appearance: no apparent distress Neurologic Exam: alert, oriented x 3, cooperative Skin Exam: normal color Eye Exam: PERRL Ears, Nose, Throat Exam: normal ENT inspection Neck Exam: normal inspection Respiratory Exam: diminished breath sounds, crackles/rales, wheezing Cardiovascular Exam: regular rate/rhythm, normal heart sounds Gastrointestinal/Abdomen Exam: soft, normal bowel sounds Extremity Exam: other (LLE edema-chronic per pt around ankle from old injury) Pelvic Exam: deferred Rectal Exam: deferred Objective Data Vital Signs: Vital Signs - 24 hr Temp Pulse Resp BP BP Pulse Ox 10/24/23 04:00 100.6 F 113 H 18 119/56 97 10/24/23 00:56 113 H 32 H 92 L 10/23/23 23:00 95 10/23/23 22:37 98.9 F 105 H 26 H 121/59 95 10/23/23 22:00 106 H 34 H 105/41 97 10/23/23 21:00 102 H 27 H 108/52 97 10/23/23 20:30 97 H 37 H 103/48 97 10/23/23 20:10 108 H 21 119/64 80 L 10/23/23 19:34 99 H 37 H 83/44 94 L 10/23/23 19:33 105 H 33 H 83/46 95 10/23/23 19:14 83 L 10/23/23 19:02 109 H 34 H 91/54 92 L 10/23/23 19:00 98.4 F 114 H 30 H 91/54 83 L Pain Assessment - Last Documented Pain Intensity 0 Intake and Output: Intake & Output 10/21/23 10/22/23 10/23/23 10/24/23 11:59 11:59 11:59 11:59 Weight 51 kg Lab Results: Lab Results-Last 24 Hours 10/23/23 10/23/23 10/23/23 Range/Units 19:06 19:25 19:25 WBC 13.6 H (3.98-10.04) x10^3/uL RBC 4.06 (3.93-5.22) x10^6/uL Hgb 12.3 (11.2-15.7) g/dL Hct 37.5 (34.1-44.9) % MCV 92.4 (79.4-94.8) fL MCH 30.3 (25.6-32.2) pg MCHC 32.8 (32.2-35.5) g/dL RDW 13.0 (11.7-14.4) % Plt Count 362 (182-369) x10^3/uL MPV 9.2 L (9.4-12.3) fL Gran % 81.7 H (34.0-71.1) % Immature Gran % (Auto) 0.4 (0.001-0.429) % Nucleat RBC Rel Count 0.0 (0.00-0.2) % Eos # (Auto) 0.11 (0.04-0.36) x10^3/uL Immature Gran # (Auto) 0.06 H (0.001-0.031) x10^3u/L Absolute Lymphs (auto) 1.30 (1.18-3.74) x10^3/uL Absolute Monos (auto) 0.99 H (0.24-0.86) x10^3/uL Absolute Nucleated RBC 0.00 (0.00-0.012) x10^3u/L Lymphocytes % 9.6 L (19.3-51.7) % Monocytes % 7.3 (4.7-12.5) % Eosinophils % 0.8 (0.7-5.8) % Basophils % 0.2 (0.1-1.2) % Absolute Granulocytes 11.09 H (1.56-6.13) x10^3/uL Basophils # 0.03 (0.01-0.08) x10^3/uL Puncture Site RRA pCO2 38 (35-45) mmHg pO2 71 L (75-100) mmHg Base Excess 3.1 H (-2.0-2.0) O2 Saturation 94.3 (94-100) g/dF ABG pH 7.46 H (7.35-7.45) ABG HCO3 27.0 (22-28) ABG O2 Sat (Measured) 96.1 (95-100) % Rodney Test yes A-a Gradient 167 a/A Ratio 0.30 Hemoglobin 12.2 Carboxyhemoglobin 1.1 (0.0-6.9) % THgb Methemoglobin 0.9 L (1.4-1.5) % Potassium 3.7 3.9 (3.5-5.1) Temperature 37.0 C POC O2 Flow Rate 40 % Sodium 134 L (135-145) mmol/L Chloride 99 (98-107) mmol/L Carbon Dioxide 23 (22-30) mmol/L Anion Gap 15.2 H (5-15) MEQ/L BUN 25 H (7-17) mg/dL Creatinine 1.05 H (0.52-1.04) mg/dL Estimated GFR 53.4 ML/MIN Glucose 125 H (74-106) mg/dL Lactic Acid 0.9 (0.4-2.0) Calcium 8.4 (8.4-10.2) mg/dL Magnesium 1.9 (1.6-2.3) mg/dL Total Bilirubin 0.70 (0.2-1.3) mg/dL AST 22 (14-36) U/L ALT 18 (0-35) U/L Alkaline Phosphatase 97 (38-126) U/L Troponin I (0.000-0.033) ng/mL NT-Pro-B Natriuret Pep (<300) pg/mL Serum Total Protein 7.2 (6.3-8.2) g/dL Albumin 3.7 (3.5-5.0) g/dL Urine Color (Yellow) Urine Appearance (Clear) Urine pH (4.6-8.0) Ur Specific [place] (1.005-1.030) Urine Protein (Negative) Urine Glucose (UA) (Negative) mg/dL Urine Ketones (Negative) Urine Blood (Negative) Urine Nitrite (Negative) Urine Bilirubin (Negative) Urine Urobilinogen (0.2) mg/dL Ur Leukocyte Esterase (Negative) U Hyaline Cast (Auto) (0-2) /LPF Urine Microscopic RBC (0-5) /HPF Urine Microscopic WBC (0-5) /HPF Ur Epithelial Cells (None Seen) /HPF Urine Bacteria (None Seen) /HPF Urine Culture Reflexed (NO) Influenza Type A Ag (NEGATIVE) Influenza Type B Ag (NEGATIVE) RSV (PCR) (NEGATIVE) SARS-CoV-2 (PCR) (NEGATIVE) 10/23/23 10/23/23 10/23/23 Range/Units 19:25 19:30 21:00 WBC (3.98-10.04) x10^3/uL RBC (3.93-5.22) x10^6/uL Hgb (11.2-15.7) g/dL Hct (34.1-44.9) % MCV (79.4-94.8) fL MCH (25.6-32.2) pg MCHC (32.2-35.5) g/dL RDW (11.7-14.4) % Plt Count (182-369) x10^3/uL MPV (9.4-12.3) fL Gran % (34.0-71.1) % Immature Gran % (Auto) (0.001-0.429) % Nucleat RBC Rel Count (0.00-0.2) % Eos # (Auto) (0.04-0.36) x10^3/uL Immature Gran # (Auto) (0.001-0.031) x10^3u/L Absolute Lymphs (auto) (1.18-3.74) x10^3/uL Absolute Monos (auto) (0.24-0.86) x10^3/uL Absolute Nucleated RBC (0.00-0.012) x10^3u/L Lymphocytes % (19.3-51.7) % Monocytes % (4.7-12.5) % Eosinophils % (0.7-5.8) % Basophils % (0.1-1.2) % Absolute Granulocytes (1.56-6.13) x10^3/uL Basophils # (0.01-0.08) x10^3/uL Puncture Site pCO2 (35-45) mmHg pO2 (75-100) mmHg Base Excess (-2.0-2.0) O2 Saturation (94-100) g/dF ABG pH (7.35-7.45) ABG HCO3 (22-28) ABG O2 Sat (Measured) (95-100) % Rodney Test A-a Gradient a/A Ratio Hemoglobin Carboxyhemoglobin (0.0-6.9) % THgb Methemoglobin (1.4-1.5) % Potassium (3.5-5.1) Temperature C POC O2 Flow Rate % Sodium (135-145) mmol/L Chloride (98-107) mmol/L Carbon Dioxide (22-30) mmol/L Anion Gap (5-15) MEQ/L BUN (7-17) mg/dL Creatinine (0.52-1.04) mg/dL Estimated GFR ML/MIN Glucose (74-106) mg/dL Lactic Acid (0.4-2.0) Calcium (8.4-10.2) mg/dL Magnesium (1.6-2.3) mg/dL Total Bilirubin (0.2-1.3) mg/dL AST (14-36) U/L ALT (0-35) U/L Alkaline Phosphatase (38-126) U/L Troponin I < 0.012 (0.000-0.033) ng/mL NT-Pro-B Natriuret Pep 910 (<300) pg/mL Serum Total Protein (6.3-8.2) g/dL Albumin (3.5-5.0) g/dL Urine Color Yellow (Yellow) Urine Appearance Clear (Clear) Urine pH 5.0 (4.6-8.0) Ur Specific [place] 1.025 (1.005-1.030) Urine Protein Trace A (Negative) Urine Glucose (UA) Negative (Negative) mg/dL Urine Ketones Trace A (Negative) Urine Blood Negative (Negative) Urine Nitrite Negative (Negative) Urine Bilirubin Negative (Negative) Urine Urobilinogen 1.0 A (0.2) mg/dL Ur Leukocyte Esterase Small A (Negative) U Hyaline Cast (Auto) 6-10 A (0-2) /LPF Urine Microscopic RBC 3-5 (0-5) /HPF Urine Microscopic WBC 21-50 A (0-5) /HPF Ur Epithelial Cells None Seen (None Seen) /HPF Urine Bacteria None Seen (None Seen) /HPF Urine Culture Reflexed NO (NO) Influenza Type A Ag NEGATIVE (NEGATIVE) Influenza Type B Ag NEGATIVE (NEGATIVE) RSV (PCR) NEGATIVE (NEGATIVE) SARS-CoV-2 (PCR) NEGATIVE (NEGATIVE) 10/23/23 Range/Units 23:23 WBC (3.98-10.04) x10^3/uL RBC (3.93-5.22) x10^6/uL Hgb (11.2-15.7) g/dL Hct (34.1-44.9) % MCV (79.4-94.8) fL MCH (25.6-32.2) pg MCHC (32.2-35.5) g/dL RDW (11.7-14.4) % Plt Count (182-369) x10^3/uL MPV (9.4-12.3) fL Gran % (34.0-71.1) % Immature Gran % (Auto) (0.001-0.429) % Nucleat RBC Rel Count (0.00-0.2) % Eos # (Auto) (0.04-0.36) x10^3/uL Immature Gran # (Auto) (0.001-0.031) x10^3u/L Absolute Lymphs (auto) (1.18-3.74) x10^3/uL Absolute Monos (auto) (0.24-0.86) x10^3/uL Absolute Nucleated RBC (0.00-0.012) x10^3u/L Lymphocytes % (19.3-51.7) % Monocytes % (4.7-12.5) % Eosinophils % (0.7-5.8) % Basophils % (0.1-1.2) % Absolute Granulocytes (1.56-6.13) x10^3/uL Basophils # (0.01-0.08) x10^3/uL Puncture Site pCO2 (35-45) mmHg pO2 (75-100) mmHg Base Excess (-2.0-2.0) O2 Saturation (94-100) g/dF ABG pH (7.35-7.45) ABG HCO3 (22-28) ABG O2 Sat (Measured) (95-100) % Rodney Test A-a Gradient a/A Ratio Hemoglobin Carboxyhemoglobin (0.0-6.9) % THgb Methemoglobin (1.4-1.5) % Potassium (3.5-5.1) Temperature C POC O2 Flow Rate % Sodium (135-145) mmol/L Chloride (98-107) mmol/L Carbon Dioxide (22-30) mmol/L Anion Gap (5-15) MEQ/L BUN (7-17) mg/dL Creatinine (0.52-1.04) mg/dL Estimated GFR ML/MIN Glucose (74-106) mg/dL Lactic Acid (0.4-2.0) Calcium (8.4-10.2) mg/dL Magnesium (1.6-2.3) mg/dL Total Bilirubin (0.2-1.3) mg/dL AST (14-36) U/L ALT (0-35) U/L Alkaline Phosphatase (38-126) U/L Troponin I < 0.012 (0.000-0.033) ng/mL NT-Pro-B Natriuret Pep (<300) pg/mL Serum Total Protein (6.3-8.2) g/dL Albumin (3.5-5.0) g/dL Urine Color (Yellow) Urine Appearance (Clear) Urine pH (4.6-8.0) Ur Specific [place] (1.005-1.030) Urine Protein (Negative) Urine Glucose (UA) (Negative) mg/dL Urine Ketones (Negative) Urine Blood (Negative) Urine Nitrite (Negative) Urine Bilirubin (Negative) Urine Urobilinogen (0.2) mg/dL Ur Leukocyte Esterase (Negative) U Hyaline Cast (Auto) (0-2) /LPF Urine Microscopic RBC (0-5) /HPF Urine Microscopic WBC (0-5) /HPF Ur Epithelial Cells (None Seen) /HPF Urine Bacteria (None Seen) /HPF Urine Culture Reflexed (NO) Influenza Type A Ag (NEGATIVE) Influenza Type B Ag (NEGATIVE) RSV (PCR) (NEGATIVE) SARS-CoV-2 (PCR) (NEGATIVE) Radiology Exams: Radiology Procedures Category Date Time Status CHEST 1 VIEW (PORTABLE) Stat Exams 10/23/23 19:06 Completed Multi-Disciplinary Progress Notes: Multi-Disciplinary Progress Notes 10/24/23 01:00 Respiratory Note by Diann Dunlap Nursing phoned this RT due to low SpO2 87% on 3lpm nasal cannula. Pt placed on 6lpm oxymask at this time. Pt's extremeties very cold and RT unable to get a good reading on a pulse ox. Will continue to monitor. Initialized on 10/24/23 01:00 - END OF NOTE Assessment/Plan (1) Acute and chronic respiratory failure with hypoxia Current Visit: Yes Status: Acute Assessment & Plan: -Secondary to pneumonia/copd exacerbation -Supplemental oxygen with goal spo2 88-999% -Levaquin started in ED, will continue -RT eval with nebs/INH -ABG PRN for lethargy/confusion -DDimer elevated - will get CT chest r/o PE Code(s): J96.21 - ACUTE AND CHRONIC RESPIRATORY FAILURE WITH HYPOXIA (2) Pneumonia Current Visit: Yes Status: Acute Assessment & Plan: -CXR with bilateral infiltrates -Levaquin started in ED -see plan for ARF -CT pending Code(s): J18.9 - PNEUMONIA, UNSPECIFIED ORGANISM (3) HTN (hypertension) Current Visit: Yes Status: Acute Assessment & Plan: -stable - continue home meds Code(s): I10 - ESSENTIAL (PRIMARY) HYPERTENSION (4) GEOVANNA (acute kidney injury) Current Visit: Yes Status: Acute Assessment & Plan: -Most likely hypovolemic -creat at 1.05 on arrival, now at 0.79 -resolved Code(s): N17.9 - ACUTE KIDNEY FAILURE, UNSPECIFIED (5) COPD exacerbation Current Visit: No Status: Acute Assessment & Plan: -Supplemental oxygen with goal spo2 88-92% -RT eval NEBS/INH -Levaquin -CXR with bilateral infiltrates -CT pending -sputum culture -steroid Code(s): J44.1 - CHRONIC OBSTRUCTIVE PULMONARY DISEASE W (ACUTE) EXACERBATION
[2023-10-24 06:00] LABS: Absolute Neutrophil Ct (ANC) 12.54 x10^3/uL (1.56-6.13); BASOPHIL % 0.3 % (0.1-1.2); Basophil (Absolute #) 0.04 x10^3/uL (0.01-0.08); Eosinophil % 0.6 % (0.7-5.8); Eosinophil (Absolute #) 0.08 x10^3/uL (0.04-0.36); Hematocrit 37.7 % (34.1-44.9); Hemoglobin 11.7 g/dL (11.2-15.7); IMMATURE GRAN % 0.7 % (0.001-0.429); Lymphocyte (Absolute #) 1.01 x10^3/uL (1.18-3.74); Mean Cell Volume 97.9 fL (79.4-94.8); Mean Corpuscular Hemoglobin 30.4 pg (25.6-32.2); Monocyte (Absolute #) 0.75 x10^3/uL (0.24-0.86); Monocytes % 5.2 % (4.7-12.5); NUCLEATED RBC # 0.19 x10^3u/L (0.00-0.012); NUCLEATED RBC % 1.3 % (0.00-0.2); Neutrophil % 86.2 % (34.0-71.1); Platelet Count 298 x10^3/uL (182-369); Red Blood Count 3.85 x10^6/uL (3.93-5.22); Red Cell Distribution Width 13.3 % (11.7-14.4); White Blood Count 14.5 x10^3/uL (3.98-10.04)
[2023-10-24 06:46] LABS: ALBUMIN 2.5 g/dL (3.5-5.0); ANION GAP 9.4 MEQ/L (5-15); Calcium 7.9 mg/dL (8.4-10.2); Creatinine 1 0.79 mg/dL (0.52-1.04); EST GLOMERULAR FILTRATION RATE 75.1 ML/MIN; Potassium 4.2 mmol/L (3.5-5.1); Total Protein 5.4 g/dL (6.3-8.2)
[2023-10-24] MEDS: VENTOLIN COMMON CANISTER IH SCH (07:14)
[2023-10-24] MEDS: PULMICORT 0.5 MG/2 ML RESPULES IH SCH ×2 (07:14→19:19)
[2023-10-24] MEDS: Spiriva 18 Mcg/Cap Inhaler IH SCH (07:14)
[2023-10-24] MEDS: Advair Hfa 115/21 Common canister IH SCH (07:14)
[2023-10-24] MEDS: THERAGRAN MULTIVITAMIN PO SCH (09:13)
[2023-10-24] MEDS: Calcium 500MG W/Vit D Tablet PO SCH (09:13)
[2023-10-24] MEDS: Effexor XR 75 MG PO SCH (09:13)
[2023-10-24] MEDS: ECOTRIN 81 MG PO SCH (09:13)
[2023-10-24] MEDS: Micardis 80 MG Tablet PO SCH (09:14)
[2023-10-24] MEDS: solu-MEDROL 40 MG, Sterile H2O 10 ml 1 ML IV SCH (09:14)
[2023-10-24] MEDS ORDERED: Spiriva 18 Mcg/Cap Inhaler IH SCH (10:00)
[2023-10-24] MEDS ORDERED: VITAMIN D3 PO SCH (10:00)
[2023-10-24] MEDS ORDERED: NON-FORMULARY ITEM (Multivitamin [Multivitamins] 1 EACH Tablet) PO SCH (10:00)
[2023-10-24] MEDS ORDERED: NON-FORMULARY ITEM (Fluticasone/Umeclidin/Vilanter [Trelegy Ellipta 100-62.5-25] 1 EACH Bl PO SCH (10:00)
[2023-10-24] MEDS ORDERED: TELMISARTAN 40 MG PO SCH (10:00)
[2023-10-24] MEDS ORDERED: CALCIUM CARBONATE PO SCH (10:00)
[2023-10-24] MEDS ORDERED: VENTOLIN COMMON CANISTER IH SCH (10:00)
[2023-10-24] MEDS ORDERED: NON-FORMULARY ITEM (Venlafaxine Hcl [Venlafaxine Hcl Er] 75 MG Tab.Er.24) PO SCH (10:00)
[2023-10-24] MEDS ORDERED: Levofloxacin 500MG/100ML D5W 500 MG/100 ML BAG IV SCH (10:00)
[2023-10-24] MEDS ORDERED: [UNRECOGNIZED DRUG - OTHER] PO SCH (10:00)
--- NOTE | 2023-10-24 15:38 | XRAY ---
CLINICAL HISTORY: r/o PE SOB COMPARISON: None TECHNIQUE: Contiguous axial CT images of the chest were acquired with the administration of intravenous contrast 80 cc isovue 370 mg/ml. Coronal and sagittal reconstructions were obtained. One of the following dose reduction techniques were utilized for this exam: Automated exposure control, adjustment of the mA and/or kV according to patient size, use of iterative reconstruction FINDINGS: Bilateral mild pleural effusion and compressional atelectasis is seen. There are also bilateral large lower lobe consolidations and peribronchovascular ground glass opacities. The heart, great vessels, trachea and oesophagus have a normal appearance. There is no lymphadenopathy. The pulmonary vessels and bronchi are normal, The upper abdominal solid organs and bowel have a normal arterial phase appearance within the field of view. No bony abnormality is identified. No evidence of pulmonary embolism on either side. Multiple bilateral renal cortical cysts are noted, more on left. Rest of the visualized upper abdominal viscera appear unremarkable. IMPRESSION: 1. Bilateral lower lobe consolidations suggesting pneumonia. 2. Bilateral pleural effusion and compressional atelectasis. 3. No evidence of pulmonary embolism. [facility] ER was called at [phone] at 2:28 PM [employer], 10/24/2023 and JANEY Doe was informed about medical findings. Electronically Signed by: Ada Guillermo MD. (10/24/2023 15:33:24 EDT)
[2023-10-24] MEDS: MIRTAZAPINE PO SCH (22:13)
--- NOTE | 2023-10-25 14:02 | PCM.NOTE ---
Date and Time: 10/25/23 9279 Subjective Assessment: is a 83 year old female with COPD, HTN, and anxiety. She was admitted 10/23/23 with pneumonia/GEOVANNA after experiencing progressive shortness of breath. Patient is an elderly cachectic appearing female who has recurrent episodes of bronchitis and recurrent episodes of COPD. CXR imaging demonstrates new minimal bibasilar infiltrate R>L. Initial lab findings with leukocytosis and GEOVANNA. D- dimer 1.[address] negative for PE. SOB has improved and she down to 3lNC- 94%. Lung sounds are clear today. Discussed having pt be qualified for home o2 by RT and pt refused. She stated she did not want to go home with oxygen. WBC is elevated however this may be r/t steroids started yesterday. She would like to b e weaned from Oxygen and stay another night. Will continue current plan of care and reevaluate tomorrow. She denies CP, SOB, abd. pain, N/V/D. - Review of Systems Constitutional: No Fever, No Chills Eyes: No Symptoms Ears, Nose, & Throat: No Symptoms Respiratory: No Cough, No Short Of Breath Cardiac: No Chest Pain, No Edema, No Syncope Abdominal/Gastrointestinal: No Abdominal Pain, No Nausea, No Vomiting, No Diarrhea Genitourinary Symptoms: No Dysuria Musculoskeletal: No Back Pain, No Neck Pain Skin: No Rash Neurological: No Dizziness, No Focal Weakness, No Sensory Changes Psychological: No Symptoms Endocrine: No Symptoms Hematologic/Lymphatic: No Symptoms Immunological/Allergic: No Symptoms Objective Exam General Appearance: no apparent distress, alert Neurologic Exam: alert, oriented x 3, cooperative, normal mood/affect, nml cerebellar function, sensation nml, No motor deficits Skin Exam: normal color, warm, dry Eye Exam: PERRL, EOMI, eyes nml inspection Ears, Nose, Throat Exam: normal ENT inspection, pharynx normal, moist mucous membranes Neck Exam: normal inspection, non-tender, supple, full range of motion Respiratory Exam: normal breath sounds, lungs clear, No respiratory distress Cardiovascular Exam: regular rate/rhythm, normal heart sounds Gastrointestinal/Abdomen Exam: soft, No tenderness, No mass Extremity Exam: normal inspection, normal range of motion Back Exam: normal inspection, normal range of motion, No CVA tenderness, No vertebral tenderness Pelvic Exam: deferred Rectal Exam: deferred Objective Data Vital Signs: Vital Signs - 24 hr Temp Pulse Resp BP Pulse Ox 10/25/23 11:58 80 L 10/25/23 11:00 98.2 F 104 H 18 134/64 94 L 10/25/23 07:43 97.0 F 92 H 20 145/74 98 10/25/23 07:04 102 H 18 93 L 10/25/23 04:00 97.0 F 101 H 18 161/81 99 10/24/23 23:43 96.8 F 94 H 24 135/69 97 10/24/23 20:00 97.7 F 85 28 H 132/70 98 10/24/23 19:52 95 H 22 88 L 10/24/23 16:00 98.0 F 115 H 18 106/52 82 L Pain Assessment - Last Documented Pain Intensity 0 Intake and Output: Intake & Output 10/23/23 10/24/23 10/25/23 10/26/23 11:59 11:59 11:59 11:59 Intake Total 120 2941 Output Total 200 1625 Balance -80 1316 Weight 51 kg Radiology Exams: Radiology Procedures Category Date Time Status CHEST 1 VIEW (PORTABLE) Stat Exams 10/23/23 19:06 Completed CHEST WITH CONTRAST [CT] Stat Exams 10/24/23 09:35 Completed Multi-Disciplinary Progress Notes: Multi-Disciplinary Progress Notes 10/25/23 10:57 Respiratory Note by Emerita Seay SpO2 on 2L NC at rest 91%. SpO2 on room air at rest 87%. Initialized on 10/25/23 10:57 - END OF NOTE Assessment/Plan (1) Acute and chronic respiratory failure with hypoxia Current Visit: Yes Status: Acute Assessment & Plan: -Secondary to pneumonia/copd exacerbation -Supplemental oxygen with goal spo2 >92%% -Levaquin -RT eval with nebs/INH -ABG PRN for lethargy/confusion -D-Dimer elevated - CT chest negative for PE Code(s): J96.21 - ACUTE AND CHRONIC RESPIRATORY FAILURE WITH HYPOXIA (2) GEOVANNA (acute kidney injury) Current Visit: Yes Status: Acute Assessment & Plan: -Most likely hypovolemic - resolved Code(s): N17.9 - ACUTE KIDNEY FAILURE, UNSPECIFIED (3) HTN (hypertension) Current Visit: Yes Status: Acute Assessment & Plan: -stable - continue home meds Code(s): I10 - ESSENTIAL (PRIMARY) HYPERTENSION (4) Pneumonia Current Visit: Yes Status: Acute Assessment & Plan: -CXR with bilateral infiltrates -Levaquin -CT chest 10/23 IMPRESSION: 1. Bilateral lower lobe consolidations suggesting pneumonia. 2. Bilateral pleural effusion and compressional atelectasis. 3. No evidence of pulmonary embolism. Code(s): J18.9 - PNEUMONIA, UNSPECIFIED ORGANISM (5) COPD exacerbation Current Visit: No Status: Acute Assessment & Plan: -Supplemental oxygen with goal spo2 > 92% -RT eval NEBS/INH -Levaquin -CXR with bilateral infiltrates -CT pending -sputum culture - pending -steroids VTE: Lovenox Next of KIN: Georgiana Pizano [phone] Code status: SCO/ DNR D/C plan: tomorrow Code(s): J44.1 - CHRONIC OBSTRUCTIVE PULMONARY DISEASE W (ACUTE) EXACERBATION
[2023-10-25] MEDS: LEVOFLOXACIN 750MG/150ML D5W 750 MG/150 ML BAG IV SCH (22:06)
[2023-10-26 05:14] LABS: Hematocrit 37.2 % (34.1-44.9); Hemoglobin 12.2 g/dL (11.2-15.7); Mean Cell Volume 92.8 fL (79.4-94.8); Mean Corpuscular Hemoglobin 30.4 pg (25.6-32.2); Mean Corpuscular Hgb Concent. 32.8 g/dL (32.2-35.5); Mean Platelet Volume 9.5 fL (9.4-12.3); Platelet Count 407 x10^3/uL (182-369); Red Blood Count 4.01 x10^6/uL (3.93-5.22); Red Cell Distribution Width 13.2 % (11.7-14.4); White Blood Count 10.7 x10^3/uL (3.98-10.04)
[2023-10-26 05:35] LABS: ANION GAP 10.7 MEQ/L (5-15); BILIRUBIN,TOTAL 0.3 mg/dL (0.2-1.3); Calcium 8.9 mg/dL (8.4-10.2); Creatinine 1 0.84 mg/dL (0.52-1.04); EST GLOMERULAR FILTRATION RATE 69.8 ML/MIN; Potassium 4.9 mmol/L (3.5-5.1); Total Protein 6.3 g/dL (6.3-8.2)
[2023-10-26] MEDS: ENOXAPARIN SODIUM SQ SCH (10:35)
[2023-10-26 11:19] VITALS: BP 131/84; PULSE 69; RESP 19; TEMP 97.6; O2SAT 94
--- NOTE | 2023-10-26 11:34 | PCM.DS ---
Discharge Summary Date of Admission: 10/23/23 22:13 Date of Discharge: 10/26/23 Admitting Physician: FATMATA ALBERT MD Primary Care Provider: CELIA SHARP MALLIKA Allergies Allergies Sulfa (Sulfonamide Antibiotics) Allergy (Severe, Verified 10/23/23 19:00) TONGUE ROSARIO azithromycin [From Zithromax Z-Deuce] Allergy (Verified 10/23/23 19:00) phenobarbital Adverse Reaction (Severe, Verified 10/23/23 19:00) Rash Hospital Summary - Hospital Course Hospital Course: 10/25/23 is a 83 year old female with COPD, HTN, and anxiety. She was admitted 10/23/23 with pneumonia/GEOVANNA after experiencing progressive shortness of breath. Patient is an elderly cachectic appearing female who has recurrent episodes of bronchitis and recurrent episodes of COPD. CXR imaging demonstrates new minimal bibasilar infiltrate R>L. Initial lab findings with leukocytosis and GEOVANNA. D- dimer 1.[address] negative for PE. SOB has improved and she down to 3lNC- 94%. Lung sounds are clear today. Discussed having pt be qualified for home o2 by RT and pt refused. She stated she did not want to go home with oxygen. WBC is elevated however this may be r/t steroids started yesterday. She would like to be weaned from Oxygen and stay another night. Will continue current plan of care and reevaluate tomorrow. She denies CP, SOB, abd. pain, N/V/D. 10/26/23 Pt sitting in chair dressed to go home this AM. She discussed she changed her mind about oxygen at home after speaking with her family. She was qualified by RT. O2 ordered by CM. PT to work with pt to eval for any home needs. Family feels she may need further evaluation Op for Dementia work up. This can be discussed with PCP. She states she feels better and would like to go home today. She denies CP, SOB, abd. pain, N/V/D. - Vitals & Intake/Output Vital Signs: Vital Signs Temperature 97.6 F 10/26/23 11:18 Pulse Rate 69 10/26/23 11:18 Respiratory Rate 19 10/26/23 11:18 Blood Pressure 131/84 10/26/23 11:18 O2 Sat by Pulse Oximetry 94 L 10/26/23 11:18 Intake & Output: Intake & Output 10/23/23 10/24/23 10/25/23 10/26/23 11:59 11:59 11:59 11:59 Intake Total 120 2941 1160 Output Total 200 1625 Balance -80 1316 1160 Weight 51 kg - Lab Result Diagrams: 10/26/23 04:30 10/26/23 04:30 Lab Results-Last 24 Hrs: Lab Results-Last 24 Hours 10/26/23 10/26/23 Range/Units 04:30 04:30 WBC 10.7 H (3.98-10.04) x10^3/uL RBC 4.01 (3.93-5.22) x10^6/uL Hgb 12.2 (11.2-15.7) g/dL Hct 37.2 (34.1-44.9) % MCV 92.8 (79.4-94.8) fL MCH 30.4 (25.6-32.2) pg MCHC 32.8 (32.2-35.5) g/dL RDW 13.2 (11.7-14.4) % Plt Count 407 H D (182-369) x10^3/uL MPV 9.5 (9.4-12.3) fL Sodium 133 L (135-145) mmol/L Potassium 4.9 (3.5-5.1) mmol/L Chloride 102 (98-107) mmol/L Carbon Dioxide 25 (22-30) mmol/L Anion Gap 10.7 (5-15) MEQ/L BUN 27 H (7-17) mg/dL Creatinine 0.84 (0.52-1.04) mg/dL Estimated GFR 69.8 ML/MIN Glucose 130 H (74-106) mg/dL Calcium 8.9 (8.4-10.2) mg/dL Total Bilirubin 0.30 (0.2-1.3) mg/dL AST 19 (14-36) U/L ALT 15 (0-35) U/L Alkaline Phosphatase 100 (38-126) U/L Serum Total Protein 6.3 (6.3-8.2) g/dL Albumin 3.0 L (3.5-5.0) g/dL Micro Results-Entire Visit: Microbiology 10/23/23 19:30 Blood Culture - Preliminary Blood 10/23/23 19:25 Blood Culture - Preliminary Blood - Procedures and Test Procedures and Tests throughout Hospitalization: Therapy Orders & Screens 10/23/23 22:36 EKG REPEAT IN AM Comment: Oxygen Nasal Cannula 2 lpm Comment: Respiratory Therapy Consult ONCE Comment: Reason For Exam: 10/24/23 01:48 Respiratory MDI BID Comment: Diagnosis: Pneumonia 10/24/23 07:33 Respiratory Therapy Assessment DAILY Comment: Diagnosis: Pneumonia 10/24/23 17:55 Incentive Spirometry UD Comment: Diagnosis: Pneumonia 10/25/23 11:10 RT Miscellaneous Order ROUTINE Comment: Physician Instructions: Reason For Exam: wean O2 as tolerated, pt refuses to have home O2 Diagnosis: Pneumonia 10/25/23 19:11 PT Eval & Treat (MD Order) ONCE Reason for Eval:: Weakness Diagnosis: Pneumonia 10/26/23 07:35 RT Miscellaneous Order ROUTINE Comment: Physician Instructions: she does not want home O2, plan to d/c today Reason For Exam: please wean O2 today Diagnosis: Pneumonia 10/26/23 09:20 RT Miscellaneous Order ROUTINE Comment: Physician Instructions: Reason For Exam: eval for home O2 please Diagnosis: Pneumonia Discharge Exam General Appearance: no apparent distress, alert Neurologic Exam: alert, oriented x 3, cooperative, normal mood/affect, nml cerebellar function, sensation nml, No motor deficits Eye Exam: PERRL, EOMI, eyes nml inspection Ears, Nose, Throat Exam: normal ENT inspection, pharynx normal, moist mucous membranes Neck Exam: normal inspection, non-tender, supple, full range of motion Respiratory Exam: normal breath sounds, lungs clear, No respiratory distress Cardiovascular Exam: regular rate/rhythm, normal heart sounds Gastrointestinal/Abdomen Exam: soft, No tenderness, No mass Pelvic Exam: deferred Rectal Exam: deferred Back Exam: normal inspection, normal range of motion, No CVA tenderness, No v ertebral tenderness Extremity Exam: normal inspection, normal range of motion Skin Exam: normal color, warm, dry Final Diagnosis/Problem List - Final Discharge Diagnosis/Problem (1) Acute and chronic respiratory failure with hypoxia Current Visit: Yes Status: Acute Code(s): J96.21 - ACUTE AND CHRONIC RESPIRATORY FAILURE WITH HYPOXIA (2) GEOVANNA (acute kidney injury) Current Visit: Yes Status: Acute Code(s): N17.9 - ACUTE KIDNEY FAILURE, UNSPECIFIED (3) HTN (hypertension) Current Visit: Yes Status: Acute Code(s): I10 - ESSENTIAL (PRIMARY) HYPERTENSION (4) Pneumonia Current Visit: Yes Status: Acute Code(s): J18.9 - PNEUMONIA, UNSPECIFIED ORGANISM (5) COPD exacerbation Current Visit: No Status: Acute Assessment & Plan: (1) Acute and chronic respiratory failure with hypoxia Current Visit: Yes Status: Acute Assessment & Plan: -Secondary to pneumonia/copd exacerbation -Supplemental oxygen with goal spo2 >92%% -Levaquin -RT eval with nebs/INH -ABG PRN for lethargy/confusion -D-Dimer elevated - CT chest negative for PE 10/25 - qualified for home O2 by RT - CM setting up home O2 Code(s): J96.21 - ACUTE AND CHRONIC RESPIRATORY FAILURE WITH HYPOXIA (2) GEOVANNA (acute kidney injury) Current Visit: Yes Status: Acute Assessment & Plan: -Most likely hypovolemic - resolved Code(s): N17.9 - ACUTE KIDNEY FAILURE, UNSPECIFIED (3) HTN (hypertension) Current Visit: Yes Status: Acute Assessment & Plan: -stable - continue home meds Code(s): I10 - ESSENTIAL (PRIMARY) HYPERTENSION (4) Pneumonia Current Visit: Yes Status: Acute Assessment & Plan: -CXR with bilateral infiltrates -Levaquin -CT chest 10/23 IMPRESSION: 1. Bilateral lower lobe consolidations suggesting pneumonia. 2. Bilateral pleural effusion and compressional atelectasis. 3. No evidence of pulmonary embolism. 10/25 -continue antibiotics Op - 2LNC 94% Code(s): J18.9 - PNEUMONIA, UNSPECIFIED ORGANISM (5) COPD exacerbation Current Visit: No Status: Acute Assessment & Plan: -Supplemental oxygen with goal spo2 > 92% -RT eval NEBS/INH -Levaquin -CXR with bilateral infiltrates -CT pending -sputum culture - pending -steroids- continue OP Code(s): J44.1 - CHRONIC OBSTRUCTIVE PULMONARY DISEASE W (ACUTE) EXACERBATION - Discharge Discharge Date: 10/26/23 Disposition: Home, Self-Care Condition: Stable Prescriptions: Continue Telmisartan [Micardis] 40 mg PO DAILY Multivitamin [Multivitamins] 1 each PO DAILY Calcium Carbonate/Vitamin D3 [Calcium 500-Vit D3 400 Tablet] 1 each PO DAILY Aspirin [Ecotrin] 81 mg PO DAILY Albuterol Sulfate [Proair Hfa] 8.5 gm IH DAILY #2 hfa.aer.ad ALPRAZolam [Xanax 0.5 mg] 0.5 mg PO BID PRN PRN #0 tablet PRN Reason: Anxiety Tiotropium [place] [Spiriva] 18 mcg IH DAILY Budesonide 0.5 mg/2 ml [Pulmicort 0.5 mg/2 ml Respules] 0.5 mg IH BID Fluticasone/Umeclidin/Vilanter [Trelegy Ellipta 100-62.5-25] 1 puff PO DAILY Venlafaxine HCl [Venlafaxine HCl ER] 75 mg PO DAILY Mirtazapine 7.5 mg PO HS Instructions: Oxygen therapy at home Additional Instructions: WEAR 2L/NC AT ALL TIMES AT HOME CALL [facility] WHEN YOU GET HOME AT [phone] SO THEY CAN DELIVER YOUR HOME CONCENTRATOR. IF YOU HAVE ANY TROUBLE GETTING IT DELIVERED, CALL HOSPITAL AND TALK WITH THE OYSTER CULLER AT [phone]
== END 2023-10-26 15:42 | disposition home or self-care (01) ==
LOC: ED 18:56 → MED SURG 22:13
PROVIDERS: ADMIT Student in an Organized Health Care Education/Training Program; ATTEND Student in an Organized Health Care Education/Training Program
DX: J96.21 Acute and chronic respiratory failure with hypoxia (principal); N17.9 Acute kidney failure, unspecified; I10 Essential (primary) hypertension; J18.9 Pneumonia, unspecified organism; J44.9 Chronic obstructive pulmonary disease, unspecified; R91.8 Other nonspecific abnormal finding of lung field; R60.0 Localized edema; Z79.899 Other long term (current) drug therapy
CPT/HCPCS: 0241U; 36000; 36415; 36600; 71045; 71260; 80053; 81001; 82375; 82803; 83605; 83735; 83880; 84484; 85025; 85027; 85379; 87040; 93005; 93041; 94640; 94760; 94762; 96365; 97161; 99284; 99291; Q3014; 93268; J1650; J1956; J2919; A9270-GY; G0378

== ENCOUNTER 2024-06-25 03:11 | Emergency (ER) | payer MEDICARE ==
[2024-06-25 03:48] VITALS: TEMP 98.3
[2024-06-25 04:39] LABS: Absolute Neutrophil Ct (ANC) 5.09 x10^3/uL (1.56-6.13); BASOPHIL % 0.8 % (0.1-1.2); Basophil (Absolute #) 0.07 x10^3/uL (0.01-0.08); Eosinophil % 4.5 % (0.7-5.8); Eosinophil (Absolute #) 0.39 x10^3/uL (0.04-0.36); Hematocrit 38.4 % (34.1-44.9); Hemoglobin 12.4 g/dL (11.2-15.7); IMMATURE GRAN # 0.04 x10^3u/L (0.001-0.031); IMMATURE GRAN % 0.5 % (0.001-0.429); Lymphocyte (Absolute #) 2.54 x10^3/uL (1.18-3.74); Lymphocytes % 29.3 % (19.3-51.7); Mean Cell Volume 95.5 fL (79.4-94.8); Mean Corpuscular Hemoglobin 30.8 pg (25.6-32.2); Mean Corpuscular Hgb Concent. 32.3 g/dL (32.2-35.5); Mean Platelet Volume 9.4 fL (9.4-12.3); Monocyte (Absolute #) 0.55 x10^3/uL (0.24-0.86); Monocytes % 6.3 % (4.7-12.5); Neutrophil % 58.6 % (34.0-71.1); Platelet Count 393 x10^3/uL (182-369); Red Blood Count 4.02 x10^6/uL (3.93-5.22); Red Cell Distribution Width 12.8 % (11.7-14.4); White Blood Count 8.7 x10^3/uL (3.98-10.04)
--- NOTE | 2024-06-25 04:43 | ERPHSYRPT ---
- History of Present Illness Time Seen by Provider: 06/25/24 04:24 Source: patient, family, EMS Exam Limitations: no limitations Patient Subjective Stated Complaint: pt states she tripped over her oxygen tubing and fell Triage Nursing Assessment: pt came into the er via ambulance; pt was transfer to cot per ems staff; pt is axo x3; c/o fall; pt denies pain; shortening and rotation present to LLE; weak major pedal pulse; BLE cool to the touch; pt wear home O2 at 2L; skin pink, dry, cool; no respiratory distress present; htn Physician History: 84 years old female with history of hypertension, COPD with respiratory failure on oxygen presented in ER via EMS after she tripped over her oxygen tubing with a fall on the left side. She was not able to get up until EMS arrival. Patient has shortening and rotation of left lower extremity. Did not hit her head, no loss of consciousness. No injury anywhere else. Has history of right total hip replacement. Allergies/Adverse Reactions: Sulfa (Sulfonamide Antibiotics) Allergy (Severe, Verified 06/25/24 03:26) TONGUE ROSARIO azithromycin [From Zithromax Z-Deuce] Allergy (Verified 06/25/24 03:26) phenobarbital Adverse Reaction (Severe, Verified 06/25/24 03:26) Rash Home Medications: Aspirin [Ecotrin] 81 mg PO DAILY 08/21/14 [History] Multivitamin [Multivitamins] 1 each PO DAILY 08/21/14 [History] Telmisartan [Micardis] 40 mg PO DAILY 08/21/14 [History] Mirtazapine 7.5 mg PO HS 10/23/23 [History] Venlafaxine HCl [Venlafaxine HCl ER] 75 mg PO DAILY 10/23/23 [History] ALPRAZolam [Xanax 0.5 mg] 0.5 mg PO TID 06/25/24 [History] Albuterol Sulfate [Proair Hfa] 2 puff IH Q4HPRN PRN 06/25/24 [History] Levothyroxine Sodium 50 mcg PO DAILY 06/25/24 [History] Hx Tetanus, Diphtheria Vaccination/Date Given: No Hx Influenza Vaccination/Date Given: Yes Hx Pneumococcal Vaccination/Date Given: No Immunizations Up to Date: No Travel Risk - International Travel Have you traveled outside of the country in past 3 weeks: No - Emerging Infectious Disease Are you exhibiting symptoms associated with any current EIDs: No Symptoms: Shortness of Breath - Review of Systems Constitutional: No Symptoms Ears, Nose, & Throat: No Symptoms Respiratory: Dyspnea Abdominal/Gastrointestinal: No Symptoms Genitourinary Symptoms: No Symptoms Musculoskeletal: Deformity, Fall, Injury, Joint Pain, Joint Swelling Neurological: No Symptoms Endocrine: No Symptoms Hematologic/Lymphatic: No Symptoms - Past Medical History Pertinent Past Medical History: Yes Neurological History: No Pertinent History ENT History: No Pertinent History Cardiac History: Hypertension Respiratory History: COPD Endocrine Medical History: No Pertinent History Musculoskeletal History: No Pertinent History GI Medical History: No Pertinent History History: No Pertinent History Psycho-Social History: Anxiety Female Reproductive Disorders: No Pertinent History - Past Surgical History Past Surgical History: Yes (rectal fistula) Neuro Surgical History: No Pertinent History Cardiac: No Pertinent History Respiratory: No Pertinent History Gastrointestinal: No Pertinent History Genitourinary: No Pertinent History Musculoskeletal: Orthopedic Surgery Female Surgical History: No Pertinent History, Tubal Ligation Other Surgical History: RECTAL CYST, rt hip replacement - Social History Smoking Status: Current every day smoker How long have you smoked: 30 Exposure to second hand smoke: Yes Drug Use: none - Social Determinants of Health Will the patient participate in the screening: Yes Do you worry about a steady place to live?: No Do you have any problems with any of the following?: No known problems In the past 12 months,have you had to go without utilities?: No Transportation Issues: No Has anyone in your support network made you feel unsafe?: No Have you or anyone in your house had to go w/o enough food: No - Nursing Vital Signs Nursing Vital Signs: Initial Vital Signs Pulse Rate 80 06/25/24 03:16 Respiratory Rate 21 06/25/24 03:16 Blood Pressure 149/72 06/25/24 03:16 O2 Sat by Pulse Oximetry 97 06/25/24 03:16 Pain Scale Pain Intensity 0 - Hitesh Coma Score Best Eye Response (Hitesh): (4) open spontaneously Best Verbal Response ([place]): (5) oriented Best Motor Response (Hitesh): (6) obeys commands Hitesh Total: 15 - Physical Exam General Appearance: no apparent distress Head Injury: no evidence of injury Eye Exam: PERRL/EOMI, eyes nml inspection ENT Exam: airway nml, nml ext.inspection, No evidence of ENT injury, No dental injury Neck Exam: supple, trachea midline, full range of motion, normal alignment, normal inspection Respiratory/Chest Exam: wheezing, No chest tenderness, No respiratory distress, No accessory muscle use Cardiovascular Exam: normal heart sounds, regular rate/rhythm Gastrointestinal Exam: soft, normal bowel sounds Back Exam: normal inspection, No CVA tenderness, No vertebral tenderness Extremity Exam: contusions, joint swelling, limited range of motion, hip tenderness (Left with shortening and rotation of lower extremity vascular), pain with movement, tenderness Neurologic Exam: alert, oriented x 3, cooperative, 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, nml cerebellar function, sensation nml, motor deficits, No sensory deficit Skin Exam: normal color SpO2 Interpretation: normal SpO2: 98 O2 Delivery: Room Air Ordered Tests: Active Orders 24 hr Category Date Time Status [place] [Catheter-[place]] STAT Care 06/25/24 04:30 Active NPO (ED) STAT Care 06/25/24 05:28 Ordered HIP UNI (2V) INCL PEL IF DONE Stat Exams 06/25/24 04:14 Taken CBC W DIFF Stat Lab 06/25/24 04:35 Completed CMP Stat Lab 06/25/24 04:35 Completed UA W/RFX UR CULTURE Stat Lab 06/25/24 04:31 Completed Medication Summary Generic Name Dose Route Start Last Admin Trade Name Freq PRN Reason Stop Dose Admin Sodium Chloride 1,000 mls @ 100 mls/hr 06/25/24 05:30 Sodium Chloride 0.9% 1000 Ml IV 07/25/24 05:29 .Q10H ADELITA Discontinued Medications Generic Name Dose Route Start Last Admin Trade Name Freq PRN Reason Stop Dose Admin Fentanyl Citrate 50 mcg 06/25/24 05:19 Fentanyl Citrate 100 Mcg/2 Ml* Vial IV 06/25/24 05:20 STAT ONE Ondansetron HCl 4 mg 06/25/24 05:19 Ondansetron Hcl 4 Mg/2 Ml Vial IV 06/25/24 05:20 STAT ONE Lab/Rad Data: Laboratory Result Diagrams 06/25/24 04:35 06/25/24 04:35 Laboratory Results 06/25/24 06/25/24 06/25/24 Range/Units 04:35 04:35 04:31 WBC 8.7 (3.98-10.04) x10^3/uL RBC 4.02 (3.93-5.22) x10^6/uL Hgb 12.4 (11.2-15.7) g/dL Hct 38.4 (34.1-44.9) % MCV 95.5 H (79.4-94.8) fL MCH 30.8 (25.6-32.2) pg MCHC 32.3 (32.2-35.5) g/dL RDW 12.8 (11.7-14.4) % Plt Count 393 H (182-369) x10^3/uL MPV 9.4 (9.4-12.3) fL Gran % 58.6 (34.0-71.1) % Immature Gran % (Auto) 0.5 H (0.001-0.429) % Nucleat RBC Rel Count 0.0 (0.00-0.2) % Eos # (Auto) 0.39 H (0.04-0.36) x10^3/uL Immature Gran # (Auto) 0.04 H (0.001-0.031) x10^3u/L Absolute Lymphs (auto) 2.54 (1.18-3.74) x10^3/uL Absolute Monos (auto) 0.55 (0.24-0.86) x10^3/uL Absolute Nucleated RBC 0.00 (0.00-0.012) x10^3u/L Lymphocytes % 29.3 (19.3-51.7) % Monocytes % 6.3 (4.7-12.5) % Eosinophils % 4.5 (0.7-5.8) % Basophils % 0.8 (0.1-1.2) % Absolute Granulocytes 5.09 (1.56-6.13) x10^3/uL Basophils # 0.07 (0.01-0.08) x10^3/uL Sodium 136 (135-145) mmol/L Potassium 4.4 (3.5-5.1) mmol/L Chloride 97 L (98-107) mmol/L Carbon Dioxide 31 H (22-30) mmol/L Anion Gap 12.8 (5-15) MEQ/L BUN 18 H (7-17) mg/dL Creatinine 0.92 (0.52-1.04) mg/dL Estimated GFR 62.2 ML/MIN Glucose 107 H (74-106) mg/dL Calcium 9.0 (8.4-10.2) mg/dL Total Bilirubin 0.60 (0.2-1.3) mg/dL AST 40 H (14-36) U/L ALT 23 (0-35) U/L Alkaline Phosphatase 64 (38-126) U/L Serum Total Protein 7.9 (6.3-8.2) g/dL Albumin 4.6 (3.5-5.0) g/dL Urine Color Yellow (Yellow) Urine Appearance Clear (Clear) Urine pH 7.0 (4.6-8.0) Ur Specific [place] <=1.005 (1.005-1.030) Urine Protein Negative (Negative) Urine Glucose (UA) Negative (Negative) mg/dL Urine Ketones Negative (Negative) Urine Blood Trace (Negative) Urine Nitrite Negative (Negative) Urine Bilirubin Negative (Negative) Urine Urobilinogen 0.2 (0.2) mg/dL Ur Leukocyte Esterase Negative (Negative) U Hyaline Cast (Auto) NONE SEEN (0-2) /LPF Urine Microscopic RBC 0-2 (0-5) /HPF Urine Microscopic WBC 0-2 (0-5) /HPF Ur Epithelial Cells None Seen (None Seen) /HPF Urine Bacteria None Seen (None Seen) /HPF Urine Culture Reflexed NO (NO) - Progress Progress: unchanged Progress Note: 06/25/24 04:53 82-year-old is evaluated for ground-level mechanical fall with shortening and rotation of the left lower extremity. She has intact distal neurovascular. She is offered pain medication which she declined. X-rays shows fracture subtratrochanteric reviewed by me, pending official read Discussed with Dr. Chung, recommended transfer to facility with pulmonology services to better serve postoperatively. I have shared the results of imaging with patient and family, recommendations of local orthopedic surgery transfer. I [facility] called [facility] which is at full capacity and not accepting transfers at the moment. 06/25/24 05:29 Baseline lab work fairly unremarkable Discussed with Eloise Ramirez orthopedics tech, reviewed history, workup, agreed with transfer and will keep the patient n.p.o., will plan on surgery early this morning. Discussed with Dr. Swenson hospitalist and patient is being transferred in consultation with orthopedic surgery. Plan discussed with patient and family which they understand and agree. Discussed with Dr.: Other ([facility] Chung [facility]opedic surgery[facility] [place], [facility]) Counseled pt/family regarding: lab results, diagnosis, need for follow-up Medical Desision Making - Independent Historian Additional History obtained from: Child, Brake Tester/EMT - Discussion of managment Care discussed with:: specialist (Dr. Chung orthopedic surgery, [facility], [facility] [place]) Reviewed:: Test results Agreed on:: Treatment plan, place in obs Will see patient: in hospital - Diagnostic Testing Diagnostic test were ordered, analyzed, and reviewed by me: Yes Radiological Interpretation: Interpreted by me, Reviewed by me - Risk of complications The pt has a mod risk of morbidity or mortality based on: Need for prescription drug management The pt has a high risk of morbidity or mortality based on: Need for major surgery in patient with known risk factors, Decision regarding hospitilization or escalation of hosp level of care - Departure Departure Disposition: Transfer Clinical Impression: Hip fracture, left, Fall Condition: Stable Critical Care Time: No Referrals: CELIA SHARP MD [Primary Care Provider] - Follow up/PCP as directed
[2024-06-25 04:45] LABS: Appearance Clear (Clear); Bacteria None Seen /HPF (None Seen); Bilirubin Negative (Negative); Blood Trace (Negative); Epithelial Cells None Seen /HPF (None Seen); Glucose, Urine Negative (Negative); Hyaline Casts NONE SEEN /LPF (0-2); Ketones Negative (Negative); Leukocyte Esterase Negative (Negative); Nitrite Negative (Negative); Protein,Urine Dip Negative (Negative); RBC 0-2 /HPF (0-5); Specific Gravity <=1.005 (1.005-1.030); Urobilinogen 0.2 mg/dL (0.2); WBC 0-2 /HPF (0-5)
[2024-06-25 04:52] LABS: ALBUMIN 4.6 g/dL (3.5-5.0); ANION GAP 12.8 MEQ/L (5-15); BILIRUBIN,TOTAL 0.6 mg/dL (0.2-1.3); Creatinine 1 0.92 mg/dL (0.52-1.04); EST GLOMERULAR FILTRATION RATE 62.2 ML/MIN; Potassium 4.4 mmol/L (3.5-5.1); Total Protein 7.9 g/dL (6.3-8.2)
[2024-06-25] MEDS ORDERED: Sodium Chloride 0.9% 1000 ML 1,000 ML ONE (05:48)
[2024-06-25] MEDS: Sodium Chloride 0.9% 1000 ML 1,000 ML IV SCH (05:49)
[2024-06-25] MEDS ORDERED: Zofran 4 MG/2 ML VIAL ONE ×2 (05:53→06:00)
[2024-06-25] MEDS ORDERED: SUBLIMAZE 100 MCG/2 ML ONE (05:53)
[2024-06-25] MEDS: SUBLIMAZE 100 MCG/2 ML IV ONE (05:59)
[2024-06-25] MEDS: Zofran 4 MG/2 ML VIAL IV ONE (06:00)
[2024-06-25 06:13] VITALS: RESP 25
[2024-06-25 06:54] VITALS: BP 106/60; PULSE 95; O2SAT 96
--- NOTE | 2024-06-25 09:05 | XRAY ---
Indication: Status post fall. Rotation. Shortening. Comparison: None AP pelvis and 2-view left hip demonstrates comminuted and angulated left intertrochanteric acute fracture. Elsewhere osteopenia, incompletely visualized right total hip arthroplasty, lower lumbar degenerative spondylosis, mild scattered vascular calcifications, and probable bilateral gluteal calcified injection granulomas. No other bony, articular, or soft tissue abnormalities.
[2024-06-25] MEDS ORDERED: Sodium Chloride 0.9% 500 ML 500 ML IV ONE (12:48)
== END 2024-06-25 06:53 | disposition short-term general hospital (02) ==
LOC: ED 03:11
DX: S72.142A Displaced intertrochanteric fracture of left femur, initial encounter for closed fracture (principal); W01.0XXA Fall on same level from slipping, tripping and stumbling without subsequent striking against object, initial encounter; I10 Essential (primary) hypertension; Z79.899 Other long term (current) drug therapy; Z72.0 Tobacco use
CPT/HCPCS: 36415; 51702; 73502; 80053; 81001; 85025; 96374; 96375; 99285; J2405; J3010

== ENCOUNTER 2024-08-08 08:50 | Emergency (ER) | payer MEDICARE ==
--- NOTE | 2024-08-08 08:57 | ERPHSYRPT ---
- History of Present Illness Time Seen by Provider: 08/08/24 08:57 Source: patient, family Exam Limitations: no limitations Physician History: This is an 84-year-old cachectic, elderly white female patient brought to the emergency department by private vehicle transported by her daughter and is a patient of Dr. Sharp with a complaint of nonproductive cough and shortness of breath this morning. Yesterday, patient states that she was feeling fine. Because of her symptoms patient increased her nasal cannula oxygen level to 3 L. Patient continues to smoke tobacco cigarettes. Patient denies chest pain. Patient denies fever. Patient has a history of anxiety, hypertension, COPD and hypothyroidism. Her oxygen saturation levels is 100% on room air. She does not appear to be in any distress. Timing/Duration: today Activities at Onset: other (Patient was insistent on walking from the emergency room waiting area to her room.) Severity of Dyspnea-Max: mild Severity of Dyspnea-Current: mild Possible Cause: frequent episodes Modifying Factors: Improves With: coughing (Nonproductive) Associated Symptoms: cough, No chest pain/discomfort Allergies/Adverse Reactions: Sulfa (Sulfonamide Antibiotics) Allergy (Severe, Verified 08/08/24 08:53) TONGUE ROSARIO azithromycin [From Zithromax Z-Deuce] Allergy (Verified 08/08/24 08:53) phenobarbital Adverse Reaction (Severe, Verified 08/08/24 08:53) Rash Home Medications: Aspirin [Ecotrin] 81 mg PO DAILY 08/21/14 [History] Multivitamin [Multivitamins] 1 each PO DAILY 08/21/14 [History] Telmisartan [Micardis] 40 mg PO DAILY 08/21/14 [History] Mirtazapine 7.5 mg PO HS 10/23/23 [History] Venlafaxine HCl [Venlafaxine HCl ER] 75 mg PO DAILY 10/23/23 [History] ALPRAZolam [Xanax 0.5 mg] 0.5 mg PO TID 06/25/24 [History] Albuterol Sulfate [Proair Hfa] 2 puff IH Q4HPRN PRN 06/25/24 [History] Levothyroxine Sodium 50 mcg PO DAILY 06/25/24 [History] Hx Tetanus, Diphtheria Vaccination/Date Given: No Hx Influenza Vaccination/Date Given: Yes Hx Pneumococcal Vaccination/Date Given: No Travel Risk - International Travel Have you traveled outside of the country in past 3 weeks: No - Emerging Infectious Disease Are you exhibiting symptoms associated with any current EIDs: No Symptoms: Shortness of Breath - Review of Systems Constitutional: No Symptoms Eyes: No Symptoms Ears, Nose, & Throat: No Symptoms Respiratory: Dyspnea Cardiac: No Symptoms Abdominal/Gastrointestinal: No Symptoms Genitourinary Symptoms: No Symptoms Musculoskeletal: No Symptoms Skin: No Symptoms Neurological: No Symptoms Psychological: No Symptoms Endocrine: No Symptoms Hematologic/Lymphatic: No Symptoms Immunological/Allergic: No Symptoms All Other Systems: Reviewed and Negative - Past Medical History Pertinent Past Medical History: Yes Neurological History: No Pertinent History ENT History: No Pertinent History Cardiac History: Hypertension Respiratory History: COPD Endocrine Medical History: No Pertinent History Musculoskeletal History: No Pertinent History GI Medical History: No Pertinent History History: No Pertinent History Psycho-Social History: Anxiety Female Reproductive Disorders: No Pertinent History - Past Surgical History Past Surgical History: Yes (rectal fistula) Neuro Surgical History: No Pertinent History Cardiac: No Pertinent History Respiratory: No Pertinent History Gastrointestinal: No Pertinent History Genitourinary: No Pertinent History Musculoskeletal: Orthopedic Surgery Female Surgical History: No Pertinent History, Tubal Ligation Other Surgical History: RECTAL CYST, rt hip replacement - Social History Smoking Status: Current every day smoker How long have you smoked: 30 Exposure to second hand smoke: Yes Drug Use: none - Social Determinants of Health Will the patient participate in the screening: Yes Do you worry about a steady place to live?: No In the past 12 months,have you had to go without utilities?: No Transportation Issues: No Has anyone in your support network made you feel unsafe?: No Have you or anyone in your house had to go w/o enough food: No - Nursing Vital Signs Nursing Vital Signs: Initial Vital Signs Temperature 97.0 F 08/08/24 08:54 Pulse Rate 99 H 08/08/24 08:54 Respiratory Rate 25 H 08/08/24 08:54 Blood Pressure 114/76 08/08/24 08:54 O2 Sat by Pulse Oximetry 96 08/08/24 08:54 Pain Scale Pain Intensity 0 - Physical Exam General Appearance: no apparent distress, alert, anxiety, cachetic Eye Exam: PERRL/EOMI, eyes nml inspection Ears, Nose, Throat Exam: hearing grossly normal, normal ENT inspection, normal pharynx Neck Exam: normal inspection, non-tender, supple, full range of motion Respiratory Exam: normal breath sounds, lungs clear, airway intact, No chest tenderness, No respiratory distress Cardiovascular/Chest Exam: normal heart sounds, regular rate/rhythm, normal peripheral pulses Abdominal/Gastrointestinal Exam: soft, normal bowel sounds, No tenderness Rectal Exam: not done Extremity Exam: non-tender, normal range of motion, normal inspection, normal capillary refill, no calf tenderness, no pedal edema, pelvis stable Neurologic Exam: alert, oriented x 3, cooperative, assistant librarian II-XII nml as tested, nml cerebellar function, nml station & gait, sensation nml Skin Exam: normal color, warm, dry Lymphatic Exam: No adenopathy SpO2 Interpretation: normal O2 Delivery: Nasal Cannula (3 L oxygen via nasal cannula) - Course Nursing assessment & vital signs reviewed: Yes EKG Interpreted by Me: RATE (99), Sinus Rhythm, NORMAL AXIS, NORMAL INTERVALS, NORMAL QRS, Other (No acute ischemia QTc is 430. Today's EKG is improved when compared to that twelve-lead EKG performed on 10/23/2023 which showed sinus tachycardia with a heart rate of 114 beats per minute) Ordered Tests: Active Orders 24 hr Category Date Time Status Lisw STAT Care 08/08/24 08:58 Active EKG-ER Only STAT Care 08/08/24 08:57 Active IV Insertion STAT Care 08/08/24 08:57 Active Oxygen-ED Only Nasal Cannula 3 lpm Care 08/08/24 08:57 Active Pulse Oximetry (ED) STAT Care 08/08/24 08:57 Active CHEST 1 VIEW (PORTABLE) Stat Exams 08/08/24 08:57 Completed ARTERIAL BLOOD GASES Stat Lab 08/08/24 09:00 Completed BLOOD CULTURE Stat Lab 08/08/24 09:30 Received CBC W DIFF Stat Lab 08/08/24 09:20 Completed CMP Stat Lab 08/08/24 09:20 Completed Lactic Acid Stat Lab 08/08/24 09:00 Completed MAGNESIUM Stat Lab 08/08/24 09:20 Completed NT PRO BNPII Stat Lab 08/08/24 09:20 Completed TROPONIN Q4H Lab 08/08/24 09:20 Completed TROPONIN Q4H Lab 08/08/24 13:00 Ordered TROPONIN Q4H Lab 08/08/24 17:00 Ordered Medication Summary Discontinued Medications Generic Name Dose Route Start Last Admin Trade Name Wendi PRN Reason Stop Dose Admin Methylprednisolone Sodium 0 mg 08/08/24 08:57 08/08/24 09:07 Succinate 125 mg/ Sterile IV 08/08/24 08:58 125 mg Water 2 ml STAT ONE Administration Methylprednisolone Sodium Succinate Confirm 08/08/24 09:05 Methylprednis Sod Succ 125 Mg/2 Ml Vial Administered 08/08/24 09:06 Dose 125 mg .ROUTE .STK-MED ONE Sterile Water Confirm 08/08/24 09:05 Water For Injection,Sterile 10 Ml Vial Administered 08/08/24 09:06 Dose 10 ml IJ .STK-MED ONE Lab/Rad Data: Laboratory Result Diagrams 08/08/24 09:20 08/08/24 09:20 Laboratory Results 08/08/24 08/08/24 08/08/24 Range/Units 09:20 09:20 09:20 WBC 6.4 (3.98-10.04) x10^3/uL RBC 4.02 (3.93-5.22) x10^6/uL Hgb 12.3 (11.2-15.7) g/dL Hct 39.4 (34.1-44.9) % MCV 98.0 H (79.4-94.8) fL MCH 30.6 (25.6-32.2) pg MCHC 31.2 L (32.2-35.5) g/dL RDW 13.0 (11.7-14.4) % Plt Count 338 (182-369) x10^3/uL MPV 9.3 L (9.4-12.3) fL Gran % 54.9 (34.0-71.1) % Immature Gran % (Auto) 0.3 (0.001-0.429) % Nucleat RBC Rel Count 0.0 (0.00-0.2) % Eos # (Auto) 0.23 (0.04-0.36) x10^3/uL Immature Gran # (Auto) 0.02 (0.001-0.031) x10^3u/L Absolute Lymphs (auto) 2.00 (1.18-3.74) x10^3/uL Absolute Monos (auto) 0.59 (0.24-0.86) x10^3/uL Absolute Nucleated RBC 0.00 (0.00-0.012) x10^3u/L Lymphocytes % 31.4 (19.3-51.7) % Monocytes % 9.3 (4.7-12.5) % Eosinophils % 3.6 (0.7-5.8) % Basophils % 0.5 (0.1-1.2) % Absolute Granulocytes 3.49 (1.56-6.13) x10^3/uL Basophils # 0.03 (0.01-0.08) x10^3/uL Puncture Site pCO2 (35-45) mmHg pO2 (75-100) mmHg Base Excess (-2.0-2.0) O2 Saturation (94-100) g/dF ABG pH (7.35-7.45) ABG HCO3 (22-28) ABG O2 Sat (Measured) (95-100) % Rodney Test A-a Gradient a/A Ratio Hemoglobin Carboxyhemoglobin (0.0-6.9) % THgb Methemoglobin (1.4-1.5) % Potassium 5.1 (3.5-5.1) Temperature C POC O2 Flow Rate % Sodium 139 (135-145) mmol/L Chloride 105 (98-107) mmol/L Carbon Dioxide 26 (22-30) mmol/L Anion Gap 13.9 (5-15) MEQ/L BUN 25 H (7-17) mg/dL Creatinine 0.99 (0.52-1.04) mg/dL Estimated GFR 56.9 ML/MIN Glucose 96 (74-106) mg/dL Lactic Acid (0.4-2.0) Calcium 9.3 (8.4-10.2) mg/dL Magnesium 2.1 (1.6-2.3) mg/dL Total Bilirubin 0.50 (0.2-1.3) mg/dL AST 30 (14-36) U/L ALT 21 (0-35) U/L Alkaline Phosphatase 88 (38-126) U/L Troponin I < 0.012 (0.000-0.033) ng/mL NT-Pro-B Natriuret Pep 179 (<300) pg/mL Serum Total Protein 7.6 (6.3-8.2) g/dL Albumin 4.3 (3.5-5.0) g/dL 08/08/24 Range/Units 09:00 WBC (3.98-10.04) x10^3/uL RBC (3.93-5.22) x10^6/uL Hgb (11.2-15.7) g/dL Hct (34.1-44.9) % MCV (79.4-94.8) fL MCH (25.6-32.2) pg MCHC (32.2-35.5) g/dL RDW (11.7-14.4) % Plt Count (182-369) x10^3/uL MPV (9.4-12.3) fL Gran % (34.0-71.1) % Immature Gran % (Auto) (0.001-0.429) % Nucleat RBC Rel Count (0.00-0.2) % Eos # (Auto) (0.04-0.36) x10^3/uL Immature Gran # (Auto) (0.001-0.031) x10^3u/L Absolute Lymphs (auto) (1.18-3.74) x10^3/uL Absolute Monos (auto) (0.24-0.86) x10^3/uL Absolute Nucleated RBC (0.00-0.012) x10^3u/L Lymphocytes % (19.3-51.7) % Monocytes % (4.7-12.5) % Eosinophils % (0.7-5.8) % Basophils % (0.1-1.2) % Absolute Granulocytes (1.56-6.13) x10^3/uL Basophils # (0.01-0.08) x10^3/uL Puncture Site LEFT RADIAL pCO2 41 (35-45) mmHg pO2 100 (75-100) mmHg Base Excess -2.2 L (-2.0-2.0) O2 Saturation 94.4 (94-100) g/dF ABG pH 7.36 (7.35-7.45) ABG HCO3 23.2 (22-28) ABG O2 Sat (Measured) 98.8 (95-100) % Rodney Test NOT APPLICABLE A-a Gradient 77 a/A Ratio 0.56 Hemoglobin 12.5 Carboxyhemoglobin 3.6 (0.0-6.9) % THgb Methemoglobin 1.0 L (1.4-1.5) % Potassium 4.9 (3.5-5.1) Temperature 37.0 C POC O2 Flow Rate 32 % Sodium (135-145) mmol/L Chloride (98-107) mmol/L Carbon Dioxide (22-30) mmol/L Anion Gap (5-15) MEQ/L BUN (7-17) mg/dL Creatinine (0.52-1.04) mg/dL Estimated GFR ML/MIN Glucose (74-106) mg/dL Lactic Acid 1.1 (0.4-2.0) Calcium (8.4-10.2) mg/dL Magnesium (1.6-2.3) mg/dL Total Bilirubin (0.2-1.3) mg/dL AST (14-36) U/L ALT (0-35) U/L Alkaline Phosphatase (38-126) U/L Troponin I (0.000-0.033) ng/mL NT-Pro-B Natriuret Pep (<300) pg/mL Serum Total Protein (6.3-8.2) g/dL Albumin (3.5-5.0) g/dL - Progress Progress: improved, re-examined Air Movement: good Progress Note: 08/08/24 09:20 My medical decision making and the assignment of moderate complexity to this patient's medical issue today is based on review of the patient's past medical history, review of the patient's medication list, reviewed patient drug allergy list, history present illness and physical findings on examination. The workup in this patient includes placement of intravenous line, CBC, CMP, lactic acid level, viral swabs, magnesium level, troponin level, BNP level, twelve-lead EKG, chest x-ray and ABG. Will provide the patient with Solu-Medrol 125 mg intravenously. Differential diagnosis includes but is not limited to anxiety, pneumonia, viral illness, anemia, electrolyte abnormalities, myocardial infarction, arrhythmia, COPD exacerbation, CHF exacerbation 08/08/24 09:40 The final report of the chest x-ray was interpreted by the radiologist. The impression states chest x-ray is clear. There are no acute findings. There are bony degenerative changes present. 08/08/24 10:25 I interpreted the patient's laboratory data results. The viral swabs are pending. Based on the current laboratory data results, there are no acute, emergent medical issues. Blood Culture(s) Obtained: Yes Counseled pt/family regarding: lab results, diagnosis, rad results - Departure Departure Disposition: Home Clinical Impression: COPD with exacerbation Condition: Stable Critical Care Time: No Referrals: CELIA SHARP MD [Primary Care Provider] - Follow up/PCP as directed Instructions: Chronic Obstructive Pulmonary Disease Additional Instructions: Continue your outpatient medications as prescribed. Call your primary care provider today, 08/08/2024, to make arrangements for follow-up appointment for further evaluation and management.
[2024-08-08 09:02] VITALS: TEMP 97
[2024-08-08] MEDS ORDERED: solu-MEDROL ONE (09:05)
[2024-08-08] MEDS ORDERED: Sterile H2O 10 ml IJ ONE (09:05)
[2024-08-08] MEDS: solu-MEDROL 125 MG, Sterile H2O 10 ml 2 ML IV ONE (09:07)
[2024-08-08 09:09] LABS: A-aADO2 77; ABG HEMOGLOBIN 12.5; ABG POTASSIUM 4.9 (3.5-5.1); ABG SITE LEFT RADIAL; ARTERIAL BLD GAS O2 SATURATION 98.8 % (95-100); ARTERIAL BLOOD GAS BASE EXCESS -2.2 (-2.0-2.0); ARTERIAL BLOOD GAS FIO2 32 %; ARTERIAL BLOOD GAS PCO2 41 mmHg (35-45); ARTERIAL BLOOD GAS PO2 100 mmHg (75-100); ARTERIAL BLOOD GAS pH 7.36 (7.35-7.45); CARBOXYHEMOGLOBIN 3.6 % THgb (0.0-6.9); HCO3- 23.2 (22-28); HGB O2 SAT 94.4 g/dF (94-100); Lactic Acid 1.1 (0.4-2.0); paO2 pAO1 0.56
--- NOTE | 2024-08-08 09:28 | XRAY ---
Indication: Short of breath. Comparison: October 23, 2023 Portable chest is now clear. Heart not enlarged. Bony thorax intact again with osteopenia, degenerative changes, and thoracolumbar scoliosis. No acute findings.
[2024-08-08 09:36] LABS: Absolute Neutrophil Ct (ANC) 3.49 x10^3/uL (1.56-6.13); BASOPHIL % 0.5 % (0.1-1.2); Basophil (Absolute #) 0.03 x10^3/uL (0.01-0.08); Eosinophil % 3.6 % (0.7-5.8); Eosinophil (Absolute #) 0.23 x10^3/uL (0.04-0.36); Hematocrit 39.4 % (34.1-44.9); Hemoglobin 12.3 g/dL (11.2-15.7); IMMATURE GRAN # 0.02 x10^3u/L (0.001-0.031); IMMATURE GRAN % 0.3 % (0.001-0.429); Lymphocytes % 31.4 % (19.3-51.7); Mean Corpuscular Hemoglobin 30.6 pg (25.6-32.2); Mean Corpuscular Hgb Concent. 31.2 g/dL (32.2-35.5); Mean Platelet Volume 9.3 fL (9.4-12.3); Monocyte (Absolute #) 0.59 x10^3/uL (0.24-0.86); Monocytes % 9.3 % (4.7-12.5); Neutrophil % 54.9 % (34.0-71.1); Platelet Count 338 x10^3/uL (182-369); Red Blood Count 4.02 x10^6/uL (3.93-5.22); White Blood Count 6.4 x10^3/uL (3.98-10.04)
[2024-08-08 10:01] LABS: ALBUMIN 4.3 g/dL (3.5-5.0); ANION GAP 13.9 MEQ/L (5-15); BILIRUBIN,TOTAL 0.5 mg/dL (0.2-1.3); Calcium 9.3 mg/dL (8.4-10.2); Creatinine 1 0.99 mg/dL (0.52-1.04); EST GLOMERULAR FILTRATION RATE 56.9 ML/MIN; MAGNESIUM 2.1 mg/dL (1.6-2.3); Potassium 5.1 mmol/L (3.5-5.1); Total Protein 7.6 g/dL (6.3-8.2)
[2024-08-08 10:14] LABS: INFLUENZA A NEGATIVE (NEGATIVE); INFLUENZA B NEGATIVE (NEGATIVE); RESPIRATORY SYNCTIAL VIRUS NEGATIVE (NEGATIVE); SARS-CoV-2 Xpert Express NEGATIVE (NEGATIVE)
[2024-08-08 11:15] VITALS: BP 129/69; PULSE 96; RESP 18; O2SAT 98
== END 2024-08-08 11:26 | disposition home or self-care (01) ==
LOC: ED 08:50
DX: J44.1 Chronic obstructive pulmonary disease with (acute) exacerbation (principal); R05.1 Acute cough; R06.02 Shortness of breath; I10 Essential (primary) hypertension; Z79.899 Other long term (current) drug therapy; Z72.0 Tobacco use; Z99.81 Dependence on supplemental oxygen
CPT/HCPCS: 0241U; 36415; 36600; 71045; 80053; 82375; 82803; 83605; 83735; 83880; 84484; 85025; 87040; 93005; 93041; 94760; 96374; 99285; 99284; J2919